=== PATIENT | female | born 1935 | race American Indian/Alaskan Native ===

== ENCOUNTER 2017-06-23 12:32 | Outpatient (CLI) | payer MEDICARE ==
--- NOTE | 2017-06-23 15:02 | Cat Scan Report ---
CT UPPER EXTREMITY LEFT WITHOUT CONTRAST History: Closed fracture of distal radius. Technique: Helical CT with sagittal and coronal reformatted images. Findings: No comparison exam at this facility. The images are limited secondary to poor patient positioning. The patient was uncooperative. A cast has been applied to the right forearm. There is a comminuted, nondisplaced fracture of the distal radius which extends to the radiocarpal joint. There is no evidence for calcified callous. The distal ulna, carpal bones and visualized metacarpals are intact. 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 No bony erosions. There is diffuse soft tissue swelling. Impression: Comminuted distal radial fracture with intra-articular extension at the radiocarpal joint as outlined above.
== END 2017-06-23 12:33 | disposition home or self-care (01) ==
LOC: CT 12:32
DX: S52.502D Unspecified fracture of the lower end of left radius, subsequent encounter for closed fracture with routine healing (principal); M19.032 Primary osteoarthritis, left wrist; I10 Essential (primary) hypertension; E78.00 Pure hypercholesterolemia, unspecified; J18.9 Pneumonia, unspecified organism; Z87.891 Personal history of nicotine dependence; X58.XXXD Exposure to other specified factors, subsequent encounter

== ENCOUNTER 2019-01-10 21:35 | Emergency (ER) | payer MEDICARE ==
--- NOTE | 2019-01-10 21:37 | Emergency Department Report ---
Stated Complaint: ABD PAIN RIGHT SIDE Time Seen by Provider: 01/10/19 21:36 - HPI History of Present Illness: r sided abd pain no n/v/d hx k stones denies dysuria denies abd pain bp inc with pain labs/xray and urine ordered MSE to main ER MSE screening note: Focused history and physical exam performed. Due to findings the following was ordered: ED Disposition for MSE Condition: Stable
[2019-01-10 22:36] LABS: Basophils % (Auto) 0.3 % (0.0-1.8); Eosinophils # (Auto) 0.1 K/mm3 (0.0-0.4); Eosinophils % (Auto) 1.4 % (0.0-4.3); Hematocrit 42.7 % (30.3-42.9); Hemoglobin 13.6 gm/dl (10.1-14.3); Lymphocytes % (Auto) 30.9 % (13.4-35.0); Mean Corpuscular HGB Conc 32 % (30-34); Mean Corpuscular Volume 87 fl (79-97); Monocytes # (Auto) 0.7 K/mm3 (0.0-0.8); Monocytes % (Auto) 11.1 % (0.0-7.3); Platelet Count 138 K/mm3 (140-440); Red Blood Count 4.94 M/mm3 (3.65-5.03); Red Cell Distribution Width 15.2 % (13.2-15.2)
--- NOTE | 2019-01-10 22:45 | XRay Report ---
PROCEDURE: XR ABD SERIES W CXR 1V TECHNIQUE: Abdominal series complete, including supine and upright AP views of the abdomen and front al chest. HISTORY: abd pain COMPARISONS: None . FINDINGS: Heart: Heart size slightly pronounced. Mediastinum/Vessels: Normal. Lungs/Pleural space: Mild atelectasis bilateral lower lungs. No effusion or pneumothorax. Bowel gas pattern: Nonobstructive bowel gas pattern. Moderate fecal debris throughout the colon, con stipation is possible . Masses or calcifications: There is a 8 mm calcification overlying the left renal silhouette, calcifi cation the kidney is suspected. . Bony structures: No acute osseous abnormality . Other: No free intraperitoneal air . IMPRESSION: Nonobstructive bowel gas pattern. Moderate fecal debris in the colon may represent const ipation. Left renal calculi. Bilateral lower lung atelectasis.. This document is electronically signed by Lola Elder DO., January 10 2019 10:42:30 PM ET
[2019-01-10 22:51] LABS: Alanine Aminotransferase 7 units/L (7-56); Albumin 3.8 g/dL (3.9-5); BUN/Creatinine Ratio 13; Blood Urea Nitrogen 18 mg/dL (7-17); Calcium 8.8 mg/dL (8.4-10.2); Hemolysis Index 8
[2019-01-10 22:52] LABS: Bilirubin,Direct < 0.2 mg/dL (0-0.2)
[2019-01-10] MEDS ORDERED: ZOFRAN IV ONE (22:56)
[2019-01-10] MEDS ORDERED: NACL 0.9% 500 ML 500 ML IV ONE (22:56)
[2019-01-10] MEDS ORDERED: MORPHINE IV ONE (22:57)
--- NOTE | 2019-01-10 23:00 | Emergency Department Report ---
ED Abdominal Pain HPI - General Chief Complaint: Abdominal Pain Stated Complaint: ABD PAIN RIGHT SIDE Time Seen by Provider: 01/10/19 21:36 Source: patient Mode of arrival: Ambulatory Limitations: No Limitations - History of Present Illness Initial Comments: Mrs. Vu is a very pleasant 83-year-old female with history of hypertension, kidney stones, dyslipidemia, atrial fibrillation, glaucoma, who presents with right lower quadrant and right upper quadrant pain radiating to the groin. Pain began suddenly this evening. For dinner she ate barbecue chicken and macaroni and cheese. She denies fever. She denies vomiting. Pain was initially severe. Pain is only mild at this time. Past surgical history includes hysterectomy [address] Lesa BONILLA Complaint: abdominal pain -: Sudden, This evening Location: RUQ, RLQ Radiation: other (right groin) Severity: mild, severe Severity scale (0 -10): 0 Quality: sharp, dull Consistency: constant Improves With: nothing Worsens With: nothing Associated Symptoms: denies other symptoms - Related Data Previous Rx's Medication Instructions Recorded Last Taken Type Amiodarone [Cordarone 200 MG TAB] 200 mg PO DAILY #30 tablet 07/16/16 Unknown Rx Carvedilol [Coreg] 6.25 mg PO BID #60 tablet 07/16/16 Unknown Rx Ecotrin 81 mg PO QHS #30 07/16/16 Unknown Rx Lisinopril/Hydrochlorothiazide 1 tab PO DAILY #30 07/16/16 Unknown Rx Omeprazole 40 mg PO DAILY #30 capsule. 07/16/16 Unknown Rx Potassium Chloride [K-Dur] 20 meq PO QDAY #7 tablet 07/16/16 Unknown Rx Simvastatin (Nf) [Zocor TAB] 20 mg PO DAILY #30 tablet 07/16/16 Unknown Rx Allergies Allergy/AdvReac Type Severity Reaction Status Date / Time Penicillins Allergy Unknown Verified 10/10/13 06:05 warfarin [From Coumadin] Allergy Unknown Verified 01/10/19 21:45 ED Review of Systems ROS: Stated complaint: ABD PAIN RIGHT SIDE Other details as noted in HPI Comment: All other systems reviewed and negative Constitutional: denies: fever, malaise Respiratory: denies: cough Cardiovascular: denies: chest pain ED Past Medical Hx - Past Medical History Previous Medical History?: Yes Hx Hypertension: Yes Hx Heart Attack/AMI: No Hx Congestive Heart Failure: No Hx Deep Vein Thrombosis: No Hx Pulmonary Embolism: No Hx Renal Disease: No Hx Sickle Cell Disease: No Hx Kidney Stones: Yes Hx Asthma: No Hx COPD: No Hx Tuberculosis: No Hx HIV: No Additional medical history: high cholesterol, glaucoma. A-fib - Surgical History Past Surgical History?: No Hx Coronary Stent: No Hx Open Heart Surgery: No Hx Pacemaker: No Hx Internal Defibrillator: No Hx Cholecystectomy: No Hx Appendectomy: No Hx Breast Surgery: No - Social History Smoking Status: Never Smoker Substance Use Type: None - Medications Home Medications: Home Medications Medication Instructions Recorded Confirmed Last Taken Type Amiodarone [Cordarone 200 MG TAB] 200 mg PO DAILY #30 tablet 07/16/16 Unknown Rx Carvedilol [Coreg] 6.25 mg PO BID #60 tablet 07/16/16 Unknown Rx Ecotrin 81 mg PO QHS #30 07/16/16 Unknown Rx Lisinopril/Hydrochlorothiazide 1 tab PO DAILY #30 07/16/16 Unknown Rx Omeprazole 40 mg PO DAILY #30 capsule.dr 07/16/16 Unknown Rx Potassium Chloride [K-Dur] 20 meq PO QDAY #7 tablet 07/16/16 Unknown Rx Simvastatin (Nf) [Zocor TAB] 20 mg PO DAILY #30 tablet 07/16/16 Unknown Rx ED Physical Exam - General Limitations: No Limitations General appearance: alert, in no apparent distress - Head Head exam: Present: atraumatic, normocephalic - Eye Eye exam: Present: normal appearance - ENT ENT exam: Present: mucous membranes moist - Neck Neck exam: Present: normal inspection, full ROM. Absent: tenderness, meningismus - Respiratory Respiratory exam: Present: normal lung sounds bilaterally. Absent: respiratory distress, wheezes, rales, rhonchi - Cardiovascular Cardiovascular Exam: Present: regular rate, normal rhythm, normal heart sounds. Absent: bradycardia, tachycardia, systolic murmur, diastolic murmur, rubs, gallop - GI/Abdominal GI/Abdominal exam: Present: soft, normal bowel sounds. Absent: distended, tenderness, guarding, rebound - Extremities Exam Extremities exam: Present: normal inspection - Back Exam Back exam: Present: normal inspection - Neurological Exam Neurological exam: Present: alert, oriented X3 - Psychiatric Psychiatric exam: Present: normal affect, normal mood - Skin Skin exam: Present: warm, dry, intact, normal color. Absent: rash ED Course Vital Signs 01/10/19 01/10/19 01/10/19 21:39 21:42 23:32 Temperature 98.2 F 98.2 F Pulse Rate 69 67 68 Respiratory 18 18 24 Rate Blood Pressure 173/86 173/86 O2 Sat by Pulse 94 99 97 Oximetry 01/11/19 01/11/19 01/11/19 00:00 01:00 01:16 Temperature Pulse Rate 67 68 69 Respiratory 11 L 17 23 Rate Blood Pressure 137/84 137/84 137/84 O2 Sat by Pulse 92 95 93 Oximetry 01/11/19 01/11/19 01/11/19 02:54 03:00 03:16 Temperature Pulse Rate 67 68 69 Respiratory 16 19 15 Rate Blood Pressure 134/65 134/65 O2 Sat by Pulse 94 93 Oximetry ED Medical Decision Making - Lab Data Result diagrams: 01/10/19 22:23 01/10/19 22:23 Laboratory Results - last 24 hr 01/10/19 01/10/19 01/10/19 22:23 22:23 23:20 WBC 6.3 RBC 4.94 Hgb 13.6 Hct 42.7 MCV 87 MCH 28 MCHC 32 RDW 15.2 Plt Count 138 L Lymph % (Auto) 30.9 [place] % (Auto) 11.1 H Eos % (Auto) 1.4 Baso % (Auto) 0.3 Lymph # 2.0 [place] # 0.7 Eos # 0.1 Baso # 0.0 Seg Neutrophils % 56.3 Seg Neutrophils # 3.6 Sodium 147 H Potassium 3.8 Chloride 105.3 Carbon Dioxide 32 H Anion Gap 14 BUN 18 H Creatinine 1.4 H Estimated GFR 43 BUN/Creatinine Ratio 13 Glucose 73 Calcium 8.8 Total Bilirubin 0.50 Direct Bilirubin < 0.2 Indirect Bilirubin 0.3 AST 15 ALT 7 Alkaline Phosphatase 45 Total Protein 6.2 L Albumin 3.8 L Albumin/Globulin Ratio 1.6 Lipase 15 Urine Color Yellow Urine Turbidity Clear Urine pH 6.0 Ur Specific [place] 1.020 Urine Protein <15 mg/dl Urine Glucose (UA) Neg Urine Ketones Neg Urine Blood Neg Urine Nitrite Neg Urine Bilirubin Neg Urine Urobilinogen 4.0 Ur Leukocyte Esterase Neg Urine WBC (Auto) 1.0 Urine RBC (Auto) 2.0 U Epithel Cells (Auto) < 1.0 Urine Bacteria (Auto) 1+ Urine Mucus Few - Radiology Data Radiology results: report reviewed CT abdomen and pelvis positive for cholelithiasis - Medical Decision Making Ms. Vu presents with right-sided abdominal pain caused by cholelithiasis, biliary colic. She desired to be discharged home after I offered admission for pain control. She has 90 tablets of Percocet 7.5 /25 and to address arthritis pain. She prefers to take ibuprofen 4-7 pain. I encouraged her to use Percocet for abdominal pain. She will return for fever or vomiting worsening symptoms. She'll follow with her PCP Dr. Arevalo. Critical care attestation.: If time is entered above; I have spent that time in minutes in the direct care of this critically ill patient, excluding procedure time. ED Disposition Clinical Impression: Acute abdominal pain, Biliary colic Disposition: TO HOME OR SELFCARE Is pt being admited?: No Does the pt Need Aspirin: No Condition: Stable Instructions: Abdominal Pain (ED), Biliary Colic (ED) Referrals: BASHIR AREVALO MD [Staff Physician] - 3-5 Days
[2019-01-11 00:19] LABS: Color,Urine Yellow (Yellow)
[2019-01-11 00:20] LABS: Bacteria,Urine 1+ /HPF (Negative); Bilirubin,Urine NEG (Negative); Blood,Urine NEG (Negative); Mucus,Urine FEW /HPF; Protein,Urine <15 mg/dL mg/dL (Negative)
--- NOTE | 2019-01-11 02:23 | Cat Scan Report ---
PROCEDURE: CT ABDOMEN PELVIS W CON TECHNIQUE: Computerized axial tomography of the abdomen and pelvis was performed after the IV inject ion of iodinated nonionic contrast. CT DOSE LENGTH PRODUCT: 4762 mGycm HISTORY: RUQ RLQ pain COMPARISONS: None . FINDINGS: Visualized lower thorax: The heart size is enlarged. Bilateral lower lung atelectasis.. Liver: Normal size and attenuation. Spleen: Normal size and attenuation. Gallbladder and biliary system: There are stones identified within the gallbladder. The gallbladder l umen is distended.. Pancreas: Normal. Adrenals: There is a 5 mm area of mixed attenuation on the left adrenal gland, adenoma is suspected. Kidneys: Both kidneys have normal size. No hydronephrosis. There are numerous large cysts identified off of the renal cortex. The largest on the left posteriorly measures 6 cm. The largest on the right laterally and measures 3.5 cm.. GI tract: The stomach is normal. The small bowel has normal caliber. No obstruction is seen. The cec um, appendix region and colon are normal. . Lymph nodes and mesentery: Normal. Vasculature: Normal.. Bladder: Normal. Reproductive organs: No pelvic masses. Peritoneum: No free fluid. Musculoskeletal structures: Moderate degenerative changes of the spine. Other: None . IMPRESSION: There is no evidence of intestinal or urinary tract obstruction. No ileus or enteritis. Cholelithiasis. No dilatation of the biliary ductal system. Further evaluation with ultrasound and/or HIDA scan may be of benefit. Bilateral lower lung atelectasis. Moderate cardiomegaly. Multiple bilateral renal cortical cysts. . This document is electronically signed by Lola Elder DO., January 11 2019 02:21:09 AM ET
[2019-01-11] MEDS ORDERED: ZOFRAN IV ONE (02:44)
[2019-01-11] MEDS ORDERED: MORPHINE IV ONE (02:44)
[2019-01-11 03:42] VITALS: BP 112/63
== END 2019-01-11 03:41 | disposition home or self-care (01) ==
LOC: ED 21:35
DX: K80.50 Calculus of bile duct without cholangitis or cholecystitis without obstruction (principal); I10 Essential (primary) hypertension; E78.00 Pure hypercholesterolemia, unspecified; I48.91 Unspecified atrial fibrillation; Z88.0 Allergy status to penicillin; Z88.8 Allergy status to other drugs, medicaments and biological substances; Z90.710 Acquired absence of both cervix and uterus
CPT/HCPCS: 36415; 74022; 74177; 80048; 80076; 81001; 83690; 85025; 96374; 96375; 96376; 99284; J2270; J2405; J7040; Q9967

== ENCOUNTER 2019-03-26 17:52 | Inpatient (IN) | payer MEDICARE ==
--- NOTE | 2019-03-26 18:04 | Event Note ---
ED Screening Note ED Screening Note: here with inc bp today has had a large work up this month echo ef 66 pt cant tell me meds bp slightly elevated no salazar now This initial assessment/diagnostic orders/clinical plan/treatment(s) is/are subject to change based on patients health status, clinical progression and re- assessment by fellow clinical providers in the ED. Further treatment and workup at subsequent clinical providers discretion. Patient/guardian urged not to elope from the ED as their condition may be serious if not clinically assessed and managed. Initial orders include: labs 12 lead
[2019-03-26 18:18] LABS: Basophils % (Auto) 0.6 % (0.0-1.8); Eosinophils # (Auto) 0.1 K/mm3 (0.0-0.4); Eosinophils % (Auto) 1.7 % (0.0-4.3); Hematocrit 42.5 % (30.3-42.9); Hemoglobin 13.6 gm/dl (10.1-14.3); Lymphocytes % (Auto) 38.7 % (13.4-35.0); Mean Corpuscular HGB Conc 32 % (30-34); Mean Corpuscular Volume 85 fl (79-97); Monocytes # (Auto) 0.6 K/mm3 (0.0-0.8); Monocytes % (Auto) 11.4 % (0.0-7.3); Platelet Count 136 K/mm3 (140-440); Red Blood Count 4.97 M/mm3 (3.65-5.03); Red Cell Distribution Width 15.3 % (13.2-15.2)
[2019-03-26 18:47] LABS: Albumin 3.6 g/dL (3.9-5); Calcium 8.8 mg/dL (8.4-10.2)
[2019-03-26] MEDS ORDERED: DIOVAN PO ONE (21:01)
--- NOTE | 2019-03-26 21:29 | Emergency Department Report ---
ED Shortness of Breath HPI - General Chief Complaint: High BP Stated Complaint: CONGESTIVE HEART FAILURE Time Seen by Provider: 03/26/19 17:59 Source: patient, old records reviewed Mode of arrival: Ambulatory Limitations: No Limitations - History of Present Illness Initial Comments: 83-year-old female with past medical history hypertension, atrial fibrillation status post ablation, high cholesterol, and a conduction system disease presents to the hospital with complaints of shortness of evidence blood pressure. Patient was at her physical therapy appointment when she developed shortness of breath while walking. Her blood pressure was elevated when it is 98 and only reduced to 158/90 prior to arrival so they brought her to the hospital for evaluation. Patient is here with her daughter who is visiting from [place] and does not know the patient's baseline physical/medical status. Patient states she does not know her baseline blood pressure. She also states that she has chronic intermittent shortness of breath with poor exercise tolerance. He denies any pain and states that she feels similar to her baseline. Initial pressure in the ED was elevated with a reduced spontaneously without treatment. Patient is overdue for her 7 PM medication which includes her second dose of Valsartan 160 mg. 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 There is no evidence of high degree block and patient had both her Coreg and amiodarone discontinued prior to discharge. Echo also performed at that time with EF of 55-60%. Patient went to urgent care today who was not familiar with the patient and recommended that patient come to the ER for evaluation. Patient does have a primary care doctor Dr. Mcfadden and appointment coordinator Dr. Quintin Curtis. Patient states he is compliant with all her medications. Patient uses a walker at her baseline. - Related Data Home Medications Medication Instructions Recorded Confirmed Last Taken Lasix TAB 40 mg PO DAILY 03/03/19 03/26/19 03/26/19 Myrbetriq 25 mg PO DAILY 03/03/19 03/26/19 03/26/19 Potassium Chloride [K-Dur] 8 meq PO QDAY 03/03/19 03/26/19 03/26/19 Ursodiol 250 mg PO TID 03/03/19 03/26/19 03/26/19 Valsartan 160 mg PO BID 03/03/19 03/26/19 03/26/19 160 Ibuprofen 800 mg PO Q6HR PRN 03/04/19 03/26/19 03/26/19 Previous Rx's Medication Instructions Recorded Last Taken Type Ecotrin 81 mg PO QHS #30 07/16/16 03/26/19 Rx Omeprazole 40 mg PO DAILY #30 capsule. 07/16/16 03/26/19 Rx Simvastatin (Nf) [Zocor TAB] 20 mg PO DAILY #30 tablet 07/16/16 03/26/19 Rx Allergies Allergy/AdvReac Type Severity Reaction Status Date / Time Penicillins Allergy Unknown Verified 03/26/19 18:01 warfarin [From Coumadin] Allergy Unknown Verified 03/26/19 18:01 ED Review of Systems ROS: Stated complaint: CONGESTIVE HEART FAILURE Other details as noted in HPI Comment: All other systems reviewed and negative ED Past Medical Hx - Past Medical History Previous Medical History?: Yes Hx Hypertension: Yes Hx Heart Attack/AMI: No Hx Congestive Heart Failure: No Hx Deep Vein Thrombosis: No Hx Pulmonary Embolism: No Hx Renal Disease: No Hx Sickle Cell Disease: No Hx Kidney Stones: Yes Hx Asthma: No Hx COPD: No Hx Tuberculosis: No Hx HIV: No Additional medical history: high cholesterol, glaucoma. A-fib - Surgical History Past Surgical History?: No Hx Coronary Stent: No Hx Open Heart Surgery: No Hx Pacemaker: No Hx Internal Defibrillator: No Hx Cholecystectomy: No Hx Appendectomy: No Hx Breast Surgery: No - Social History Smoking Status: Never Smoker Substance Use Type: None - Medications Home Medications: Home Medications Medication Instructions Recorded Confirmed Last Taken Type Ecotrin 81 mg PO QHS #30 07/16/16 03/26/19 03/26/19 Rx Omeprazole 40 mg PO DAILY #30 capsule. 07/16/16 03/26/19 03/26/19 Rx Simvastatin (Nf) [Zocor TAB] 20 mg PO DAILY #30 tablet 07/16/16 03/26/19 03/26/19 Rx Lasix TAB 40 mg PO DAILY 03/03/19 03/26/19 03/26/19 History Myrbetriq 25 mg PO DAILY 03/03/19 03/26/19 03/26/19 History Potassium Chloride [K-Dur] 8 meq PO QDAY 03/03/19 03/26/1903/26/19 History Ursodiol 250 mg PO TID 03/03/19 03/26/19 03/26/19 History Valsartan 160 mg PO BID 03/03/19 03/26/19 03/26/19 History 160 Ibuprofen 800 mg PO Q6HR PRN 03/04/19 03/26/19 03/26/19 History ED Physical Exam - General Limitations: No Limitations - Other Other exam information: General: No limitations, patient is alert in no acute distress Head exam: Atraumatic, normocephalic Eyes exam: Normal appearance ENT: Moist mucous membrane Neck exam: Normal inspection, full range of motion, no meningismus nontender Respiratory exam: Clear to auscultation bilateral, no wheezes, rales, crackles Cardiovascular: Normal rate and rhythm, normal heart sounds Abdomen: Soft, nondistended, and nontender, with normal bowel sounds, no rebound, or guarding Extremity: Full range of motion, lower extremity edema or tenderness or asymmetry Back: Normal Inspection, full range of motion, no tenderness Neurologic: Alert, oriented x3, cranial nerves intact, no motor or sensory deficit Psychiatric: normal affect, normal mood Skin: Warm, dry, intact ED Course Vital Signs 03/26/19 03/26/19 03/26/19 17:58 21:00 21:20 Temperature 97.9 F 98.6 F Pulse Rate 83 66 Respiratory 16 20 Rate Blood Pressure 203/93 Blood Pressure 155/100 [Right] O2 Sat by Pulse 97 100 99 Oximetry 03/26/19 03/27/19 22:23 00:23 Temperature 98.1 F Pulse Rate 72 71 Respiratory 16 16 Rate Blood Pressure Blood Pressure 160/98 155/91 [Right] O2 Sat by Pulse 97 99 Oximetry - Consultations Consultation #1: 03/26/19 22:29 case and EKG discussed with Dr Haynes. Rec admission and workup. ED Medical Decision Making - Lab Data Result diagrams: 03/26/19 18:06 03/26/19 18:06 - EKG Data -: EKG Interpreted by Ma EKG shows normal: sinus rhythm, axis (qrs -77), intervals (1st degree av block, RBBB), QRS complexes (qrsd 166), ST-T waves (no stemi) - EKG Data When compared to previous EKG there are: no significant change - Radiology Data Radiology results: report reviewed PROCEDURE: XR CHEST ROUTINE 2V TECHNIQUE: PA and lateral chest radiographs were obtained. HISTORY: sob COMPARISONS: Comparison is made 06/15/2019. FINDINGS: Heart: Cardiac silhouette is moderately enlarged Mediastinum/Vessels: Normal. Lungs/Pleural space: Normal. Bony thorax: No acute osseous abnormality. IMPRESSION: Cardiomegaly No acute pulmonary findings - Medical Decision Making ekg unchanged from previous, no stemi at this time. Discussed the cardiology pt is asymptomatic in the ED with no current symptoms at rest Patient will be admitted to the hospital for further workup and evaluated. No previous stress test on record for review Valsartan initially ordered but discontinued the patient may take her own medication tx with asa in ed - Differential Diagnosis CHF, unstable angina, hypertensive emergency, pulmonary embolus Critical Care Time: No Critical care attestation.: If time is entered above; I have spent that time in minutes in the direct care of this critically ill patient, excluding procedure time. ED Disposition Clinical Impression: Renal insufficiency, BISHOP (dyspnea on exertion), Uncontrolled hypertension, Elevated troponin Disposition: OP ADMIT IP TO THIS HOSP Is pt being admited?: Yes Condition: Stable Time of Disposition: 22:34
[2019-03-26] MEDS ORDERED: ASPIRIN PO ONE (22:20)
--- NOTE | 2019-03-26 22:31 | XRay Report ---
PROCEDURE: XR CHEST ROUTINE 2V TECHNIQUE: PA and lateral chest radiographs were obtained. HISTORY: sob COMPARISONS: Comparison is made 06/15/2019. FINDINGS: Heart: Cardiac silhouette is moderately enlarged Mediastinum/Vessels: Normal. Lungs/Pleural space: Normal. Bony thorax: No acute osseous abnormality. IMPRESSION: Cardiomegaly No acute pulmonary findings This document is electronically signed by Rafael Giles MD., Mar 26 2019 11:29:15 PM ET
[2019-03-26 23:00] LABS: Chol/HDL Ratio 1.98 %
[2019-03-26] MEDS ORDERED: BABY ASPIRIN ONE (23:19)
[2019-03-26] MEDS ORDERED: MORPHINE IV PRN (23:25)
[2019-03-26] MEDS ORDERED: DULCOLAX PR PRN (23:25)
[2019-03-26] MEDS ORDERED: TYLENOL PO PRN (23:25)
[2019-03-26] MEDS ORDERED: SODIUM CHLORIDE FLUSH SYRINGE 10 ML IV PRN (23:25)
[2019-03-26] MEDS ORDERED: ZOFRAN IV PRN (23:25)
[2019-03-26] MEDS ORDERED: AMBIEN PO PRN (23:25)
[2019-03-26] MEDS ORDERED: PERCOCET 5/325 PO PRN (23:25)
--- NOTE | 2019-03-26 23:36 | History and Physical Report ---
History of Present Illness Date of examination: 03/26/19 Chief complaint: Elevated blood pressure History of present illness: Patient is a 83-year-old -[place] female with history of hypertension and atrial fib who presented to the ED on account of elevated blood pressure. History was obtained from both the patient and the daughter who was at the bedside. They stated that's patient's blood pressure was noted to be elevated at 186/99 an hour after she completed a physical therapy session. She reported some shortness of breath and headaches. In the ED she stated that she had a slight right-sided chest pain. She has history of chronic bilateral leg swelling. She denies palpitation, diaphoresis, fever, chills, cough, orthopnea or PND. No nausea, vomiting, dizziness, syncope or loss of consciousness. Past History Past Medical History: atrial fib (status post ablation), hypertension, hyperlipidemia, renal failure, other (kidney stones, conduction system disease, glaucoma, overactive bladder) Past Surgical History: Other (ablation) Social history: no significant social history (she denies current tobacco, alcohol or illicit drug use) Family history: other (no known family history of heart attack or heart disease) Medications and Allergies Allergies Allergy/AdvReac Type Severity Reaction Status Date / Time Penicillins Allergy Unknown Verified 03/26/19 18:01 warfarin [From Coumadin] Allergy Unknown Verified 03/26/19 18:01 Home Medications Medication Instructions Recorded Confirmed Last Taken Type Ecotrin 81 mg PO QHS #30 07/16/16 03/26/19 03/26/19 Rx Omeprazole 40 mg PO DAILY #30 capsule. 07/16/16 03/26/19 03/26/19 Rx Simvastatin (Nf) [Zocor TAB] 20 mg PO DAILY #30 tablet 07/16/16 03/26/19 03/26/19 Rx Lasix TAB 40 mg PO DAILY 03/03/19 03/26/19 03/26/19 History Myrbetriq 25 mg PO DAILY 03/03/19 03/26/19 03/26/19 History Potassium Chloride [K-Dur] 8 meq PO QDAY 03/03/19 03/26/19 03/26/19 History Ursodiol 250 mg PO TID 03/03/19 03/26/19 03/26/19 History Valsartan 160 mg PO BID 03/03/19 03/26/1903/26/19 History 160 Ibuprofen 800 mg PO Q6HR PRN 03/04/19 03/26/19 03/26/19 History Active Meds: Active Medications Acetaminophen (Tylenol) 650 mg PO Q4H PRN PRN Reason: Pain MILD(1-3)/Fever >100.5/BOWMAN Amlodipine Besylate (Norvasc) 10 mg PO QDAY [facility] Aspirin (Aspirin) 325 mg PO QDAY [facility] Atorvastatin Calcium (Lipitor) 80 mg PO QHS [facility] Bisacodyl (Dulcolax) 10 mg [place] QDAY PRN PRN Reason: Constipation unrelieved by MOM Carvedilol (Coreg) 25 mg PO BID [facility] Docusate Sodium (Colace) 100 mg PO BID [facility] Famotidine (Pepcid) 10 mg PO BID [facility] Heparin Sodium (Porcine) (Heparin) 5,000 unit SUB-Q Q12HR [facility] Morphine Sulfate (Morphine) 2 mg IV Q4H PRN PRN Reason: Pain , Severe (7-10) Ondansetron HCl (Zofran) 4 mg IV Q8H PRN PRN Reason: Nausea And Vomiting Oxycodone/Acetaminophen (Percocet 5/325) 1 tab PO Q6H PRN PRN Reason: Pain, Moderate (4-6) Sodium Chloride (Sodium Chloride Flush Syringe 10 Ml) 10 ml IV BID BHAKTI Sodium Chloride (Sodium Chloride Flush Syringe 10 Ml) 10 ml IV PRN PRN PRN Reason: LINE FLUSH Zolpidem Tartrate (Ambien) 5 mg PO QHS PRN PRN Reason: Insomnia Review of Systems All systems: negative (except as documented in the HPI, 14 point system reviewed were negative) Exam - Constitutional Vitals: Temp Pulse Resp BP Pulse Ox 98.6 F 72 16 160/98 97 03/26/19 21:00 03/26/19 22:23 03/26/19 22:23 03/26/19 22:23 03/26/19 22:23 General appearance: Present: no acute distress, obese - EENT Eyes: Present: PERRL, EOM intact ENT: hearing intact, clear oral mucosa - Neck Neck: Present: supple - Respiratory Respiratory effort: normal Respiratory: bilateral: CTA - Cardiovascular Rhythm: regular Heart Sounds: Present: S1 & S2 - Extremities Extremity abnormal: edema (in bilateral lower extremities) - Abdominal General gastrointestinal: Present: soft, non-tender, normal bowel sounds Female genitourinary: Present: deferred - Integumentary Integumentary: Present: clear, warm, dry - Musculoskeletal Musculoskeletal: other (bilateral lower extremity weakness) - Psychiatric Psychiatric: appropriate mood/affect, intact judgment & insight - Neurologic Neurologic: moves all extremities Results - Labs CBC & Chem 7: 03/26/19 18:06 03/26/19 18:06 Labs: Laboratory Last Values WBC 5.1 K/mm3 (4.5-11.0) 03/26/19 18:06 RBC 4.97 M/mm3 (3.65-5.03) 03/26/19 18:06 Hgb 13.6 gm/dl (10.1-14.3) 03/26/19 18:06 Hct 42.5 % (30.3-42.9) 03/26/19 18:06 MCV 85 fl (79-97) 03/26/19 18:06 MCH 27 pg (28-32) L 03/26/19 18:06 MCHC 32 % (30-34) 03/26/19 18:06 RDW 15.3 % (13.2-15.2) H 03/26/19 18:06 Plt Count 136 K/mm3 (140-440) L 03/26/19 18:06 Lymph % (Auto) 38.7 % (13.4-35.0) H 03/26/19 18:06 [place] % (Auto) 11.4 % (0.0-7.3) H 03/26/19 18:06 Eos % (Auto) 1.7 % (0.0-4.3) 03/26/19 18:06 Baso % (Auto) 0.6 % (0.0-1.8) 03/26/19 18:06 Lymph # 2.0 K/mm3 (1.2-5.4) 03/26/19 18:06 [place] # 0.6 K/mm3 (0.0-0.8) 03/26/19 18:06 Eos # 0.1 K/mm3 (0.0-0.4) 03/26/19 18:06 Baso # 0.0 K/mm3 (0.0-0.1) 03/26/19 18:06 Seg Neutrophils % 47.6 % (40.0-70.0) 03/26/19 18:06 Seg Neutrophils # 2.4 K/mm3 (1.8-7.7) 03/26/19 18:06 Sodium 142 mmol/L (137-145) 03/26/19 18:06 Potassium 4.7 mmol/L (3.6-5.0) 03/26/19 18:06 Chloride 105.1 mmol/L (98-107) 03/26/19 18:06 Carbon Dioxide 25 mmol/L (22-30) 03/26/19 18:06 17 mmol/L 03/26/19 18:06 BUN 18 mg/dL (7-17) H 03/26/19 18:06 1.3 mg/dL (0.7-1.2) H 03/26/19 18:06 Estimated GFR 47 ml/min 03/26/19 18:06 14 % 03/26/19 18:06 Glucose 96 mg/dL (65-100) 03/26/19 18:06 Calcium 8.8 mg/dL (8.4-10.2) 03/26/19 18:06 0.70 mg/dL (0.1-1.2) 03/26/19 18:06 AST 24 units/L (5-40) 03/26/19 18:06 ALT 9 units/L (7-56) 03/26/19 18:06 55 units/L (35-129) 03/26/19 18:06 0.307 ng/mL (0.00-0.029) H* 03/26/19 21:02 6.6 g/dL (6.3-8.2) 03/26/19 18:06 3.6 g/dL (3.9-5) L 03/26/19 18:06 1.2 % 03/26/19 18:06 Triglycerides 49 mg/dL (2-149) 03/26/19 21:02 Cholesterol 101 mg/dL (50-199) 03/26/19 21:02 40 mg/dL (50-130) L 03/26/19 21:02 51 mg/dL (40-59) 03/26/19 21:02 1.98 % 03/26/19 21:02 Assessment and Plan Assessment and plan: Dyspnea with elevated troponin -We'll continue serial troponin level monitoring -On aspirin, statin and Coreg -We'll hold off on anticoagulation for now due to prior history of bleed -Stress test for further evaluation -Cardiology consulted in the ED Hypertensive emergency with SBP of 203 -On antihypertensives, will adjust as needed Chronic kidney disease stage III -Creatinine level is about baseline History of atrial fibrillation status post ablation -Heart rate controlled Hyperlipidemia -On statin Overactive bladder -Home medications resumed DVT prophylaxis with heparin Disposition: For discharge when medically stable Time spent: 38 minutes
[2019-03-26] MEDS ORDERED: COREG PO SCH (23:45)
[2019-03-26 23:46] LABS: INR 0.97 (0.87-1.13); Partial Thromboplastin Time 26.3 Sec. (24.2-36.6)
[2019-03-27] MEDS: NORVASC PO SCH ×2 (00:30→09:17)
[2019-03-27] MEDS: PEPCID PO SCH ×3 (00:30→21:22)
--- NOTE | 2019-03-27 04:41 | Event Note ---
Date: 03/27/19 Code Met was called for possible ST elevation [place]. Nurses brought EKG down to the ER for me to evaluate. Repeat EKG showed worsening bradycardia with a heart rate of 45 and now patient has a second-degree Mob[place] 2 block. This occurred after pt received Coreg. I discussed case with on-call STEMI doctor Dr. Moody who was able to review EKG and agrees that it is not ST elevation [place] at this time. I also then recontacted Dr. Haynes who also reviewed the repeat EKG. Recommends to stop AV arti blockers i.e. calcium and beta blockers. Hospitalist Dr Linn informed of cardiology recommendation.
[2019-03-27] MEDS ORDERED: LEXISCAN IV ONE ×2 (07:57→08:06)
[2019-03-27] MEDS: URSO PO SCH ×3 (09:16→21:22)
[2019-03-27] MEDS: COLACE PO SCH ×2 (09:16→21:22)
[2019-03-27] MEDS: LASIX PO SCH ×2 (09:16→09:22)
[2019-03-27] MEDS: ASPIRIN PO SCH (09:16)
[2019-03-27] MEDS: DIOVAN PO SCH ×2 (09:17→21:23)
[2019-03-27] MEDS: HEPARIN SUB-Q SCH ×2 (09:17→21:22)
[2019-03-27] MEDS: SODIUM CHLORIDE FLUSH SYRINGE 10 ML IV SCH ×2 (09:18→21:23)
[2019-03-27] MEDS ORDERED: K-DUR PO SCH (10:00)
[2019-03-27] MEDS ORDERED: MYRBETRIQ 25 MG PO SCH (10:00)
--- NOTE | 2019-03-27 13:51 | Progress Note ---
Assessment and Plan Hypertensive emergency with SBP of 203 -On antihypertensives Blood pressure control now Chronic kidney disease stage III -Creatinine level is about baseline Creatinine 1.3 History of atrial fibrillation status post ablation -Heart rate controlled Hyperlipidemia -On statin Bradycardia Coreg stopped Overactive bladder -Home medications resumed DVT prophylaxis with heparin Subjective Date of service: 03/27/19 Principal diagnosis: hypertensive emergency and shortness of breath Interval history: Patient admitted for shortness of breath and uncontrolled blood pressure. Patient has a low heart rate this morning ranging between 31 and 48. Patient is otherwise comfortable Objective - Constitutional Vitals: Vital Signs - 12hr 03/27/19 03/27/19 03/27/19 04:28 04:30 05:18 Temperature 97.4 F L Pulse Rate 58 L 56 L 59 L Respiratory 18 20 12 Rate Blood Pressure 151/77 Blood Pressure 151/77 [Right] O2 Sat by Pulse 99 99 Oximetry 03/27/19 03/27/19 03/27/19 05:30 06:00 06:30 Temperature Pulse Rate 57 L 48 L 44 L Respiratory 15 22 20 Rate Blood Pressure 183/92 133/79 129/81 Blood Pressure [Right] O2 Sat by Pulse 97 100 98 Oximetry 03/27/19 03/27/19 03/27/19 07:00 07:30 08:00 Temperature 97.3 F L Pulse Rate 48 L 45 L 48 L Respiratory 14 18 19 Rate Blood Pressure 138/72 130/64 134/67 Blood Pressure [Right] O2 Sat by Pulse 98 99 97 Oximetry 03/27/19 03/27/19 03/27/19 08:26 08:30 09:01 Temperature Pulse Rate 41 L 44 L 43 L Respiratory 16 16 Rate Blood Pressure 113/69 116/62 Blood Pressure [Right] O2 Sat by Pulse 97 97 Oximetry 03/27/19 03/27/19 03/27/19 09:31 10:00 10:31 Temperature Pulse Rate 47 L 44 L 38 L Respiratory 14 13 16 Rate Blood Pressure 132/66 138/60 119/44 Blood Pressure [Right] O2 Sat by Pulse 95 97 95 Oximetry 03/27/19 03/27/19 03/27/19 11:01 11:31 12:00 Temperature 97.5 F L Pulse Rate 40 L 42 L Respiratory 18 16 Rate Blood Pressure 127/57 109/59 Blood Pressure [Right] O2 Sat by Pulse 96 94 Oximetry 03/27/19 03/27/19 12:01 12:47 Temperature Pulse Rate 47 L Respiratory 16 Rate Blood Pressure 133/55 Blood Pressure [Right] O2 Sat by Pulse 95 95 Oximetry General appearance: Present: no acute distress, well-nourished - EENT Eyes: PERRL, EOM intact ENT: hearing intact, clear oral mucosa Ears: bilateral: normal - Neck Neck: supple, normal ROM - Respiratory Respiratory effort: normal Respiratory: bilateral: CTA - Breasts Breasts: normal - Cardiovascular Heart rate: 48 Rhythm: regular Heart Sounds: Present: S1 & S2. Absent: gallop, rub Extremities: pulses intact, No edema, normal color, Full ROM - Gastrointestinal General gastrointestinal: Present: soft, non-tender, non-distended, normal bowel sounds - Genitourinary Female genitourinary: normal - Integumentary Integumentary: clear, warm, dry - Musculoskeletal Musculoskeletal: 1, strength equal bilaterally - Neurologic Neurologic: moves all extremities - Psychiatric Psychiatric: memory intact, appropriate mood/affect, intact judgment & insight - Allied health notes Allied health notes reviewed: nursing, case management - Labs CBC & Chem 7: 03/26/19 18:06 03/26/19 18:06 Labs: Abnormal lab results 03/26/19 03/26/19 03/26/19 Range/Units 18:06 18:06 21:02 MCH 27 L (28-32) pg RDW 15.3 H (13.2-15.2) % Plt Count 136 L (140-440) K/mm3 Lymph % (Auto) 38.7 H (13.4-35.0) % [place] % (Auto) 11.4 H (0.0-7.3) % BUN 18 H (7-17) mg/dL Creatinine 1.3 H (0.7-1.2) mg/dL POC Glucose (70-105) Troponin T 0.307 H* (0.00-0.029) ng/mL NT-Pro-B Natriuret Pep (0-900) pg/mL Albumin 3.6 L (3.9-5) g/dL LDL Cholesterol Direct 40 L (50-130) mg/dL 03/26/19 03/27/19 Range/Units 22:58 04:35 MCH (28-32) pg RDW (13.2-15.2) % Plt Count (140-440) K/mm3 Lymph % (Auto) (13.4-35.0) % [place] % (Auto) (0.0-7.3) % BUN (7-17) mg/dL Creatinine (0.7-1.2) mg/dL POC Glucose 118 H (70-105) Troponin T (0.00-0.029) ng/mL NT-Pro-B Natriuret Pep 1303 H (0-900) pg/mL Albumin (3.9-5) g/dL LDL Cholesterol Direct (50-130) mg/dL
--- NOTE | 2019-03-27 15:13 | Consultation ---
History of Present Illness Consult date: 03/27/19 Consult reason: congestive heart failure, hypertension History of present illness: Impression Acute CHF, EF unknown, suspect HFpEF given uncontrolled HTN. 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 Hold on stress test until hemodynamics stabilized, trop neg x 2. DVT prophylaxis. Past History Past Medical History: atrial fib (status post ablation), hypertension, hyperlipidemia, renal failure, other (kidney stones, conduction system disease, glaucoma, overactive bladder) Past Surgical History: Other (ablation) Social history: no significant social history (she denies current tobacco, alcohol or illicit drug use) Family history: other (no known family history of heart attack or heart disease) Medications and Allergies Allergies Allergy/AdvReac Type Severity Reaction Status Date / Time amiodarone Allergy Unknown Verified 03/27/19 04:48 carvedilol [From Coreg] Allergy Unknown Verified 03/27/19 04:47 Penicillins Allergy Unknown Verified 03/26/19 18:01 warfarin [From Coumadin] Allergy Unknown Verified 03/26/19 18:01 Home Medications Medication Instructions Recorded Confirmed Last Taken Type Ecotrin 81 mg PO QHS #30 07/16/16 03/26/19 03/26/19 Rx Omeprazole 40 mg PO DAILY #30 capsule. 07/16/16 03/26/19 03/26/19 Rx Simvastatin (Nf) [Zocor TAB] 20 mg PO DAILY #30 tablet 07/16/16 03/26/19 03/26/19 Rx Lasix TAB 40 mg PO DAILY 03/03/19 03/26/19 03/26/19 History Myrbetriq 25 mg PO DAILY 03/03/19 03/26/19 03/26/19 History Potassium Chloride [K-Dur] 8 meq PO QDAY 03/03/19 03/26/19 03/26/19 History Ursodiol 250 mg PO TID 03/03/19 03/26/19 03/26/19 History Valsartan 160 mg PO BID 03/03/19 03/26/19 03/26/19 History 160 Ibuprofen 800 mg PO Q6HR PRN 05/07/1503/26/19 03/26/19 History Active Meds: Active Medications Acetaminophen (Tylenol) 650 mg PO Q4H PRN PRN Reason: Pain MILD(1-3)/Fever >100.5/BOWMAN Amlodipine Besylate (Norvasc) 10 mg PO QDAY [facility] Last Admin: 03/27/19 09:17 Dose: Not Given Documented by: Aspirin (Aspirin) 325 mg PO QDAY [facility] Last Admin: 03/27/19 09:16 Dose: 325 mg Documented by: Atorvastatin Calcium (Lipitor) 80 mg PO QHS [facility] Last Admin: 03/27/19 00:29 Dose: Not Given Documented by: Bisacodyl (Dulcolax) 10 mg [place] QDAY PRN PRN Reason: Constipation unrelieved by MOM Docusate Sodium (Colace) 100 mg PO BID [facility] Last Admin: 03/27/19 09:16 Dose: 100 mg Documented by: Famotidine (Pepcid) 10 mg PO BID [facility] Last Admin: 03/27/19 09:16 Dose: 10 mg Documented by: Furosemide (Lasix) 40 mg PO DAILY [facility] Last Admin: 03/27/19 09:22 Dose: Not Given Documented by: Heparin Sodium (Porcine) (Heparin) 5,000 unit SUB-Q Q12HR [facility] Last Admin: 03/27/19 09:17 Dose: 5,000 unit Documented by: Miscellaneous Medication (Myrbetriq) 25 mg PO DAILY [facility] Morphine Sulfate (Morphine) 2 mg IV Q4H PRN PRN Reason: Pain , Severe (7-10) Ondansetron HCl (Zofran) 4 mg IV Q8H PRN PRN Reason: Nausea And Vomiting Oxycodone/Acetaminophen (Percocet 5/325) 1 tab PO Q6H PRN PRN Reason: Pain, Moderate (4-6) Sodium Chloride (Sodium Chloride Flush Syringe 10 Ml) 10 ml IV BID [facility] Last Admin: 03/27/19 09:18 Dose: 10 ml Documented by: Sodium Chloride (Sodium Chloride Flush Syringe 10 Ml) 10 ml IV PRN PRN PRN Reason: LINE FLUSH Ursodiol ([place]) 250 mg PO TID [facility] Last Admin: 03/27/19 13:26 Dose: 250 mg Documented by: Valsartan (Diovan) 160 mg PO BID [facility] Last Admin: 03/27/19 09:17 Dose: Not Given Documented by: Zolpidem Tartrate (Ambien) 5 mg PO QHS PRN PRN Reason: Insomnia Review of Systems All systems: negative (stated in HPI) Physical Examination Vital Signs Temp Pulse Resp BP Pulse Ox 97.9 F 83 16 203/93 97 03/26/19 17:58 03/26/19 17:58 03/26/19 17:58 03/26/19 17:58 03/26/19 17:58 General appearance: no acute distress, obese HEENT: Positive: PERRL Neck: Positive: neck supple Cardiac: Positive: Irregularly Regular Lungs: Positive: Normal Exam Neuro: Positive: Grossly Intact Abdomen: Positive: Unremarkable Results 03/26/19 18:06 03/26/19 18:06 Cardiac Enzymes 03/26/19 Range/Units 18:06 AST 24 (5-40) units/L Coagulation 03/26/19 Range/Units 23:13 PT 13.5 (12.2-14.9) Sec. INR 0.97 (0.87-1.13) APTT 26.3 (24.2-36.6) Sec. Lipids 03/26/19 Range/Units 21:02 Triglycerides 49 (2-149) mg/dL Cholesterol 101 (50-199) mg/dL HDL Cholesterol 51 (40-59) mg/dL Cholesterol/HDL Ratio 1.98 % CBC 03/26/19 Range/Units 18:06 WBC 5.1 (4.5-11.0) K/mm3 RBC 4.97 (3.65-5.03) M/mm3 Hgb 13.6 (10.1-14.3) gm/dl Hct 42.5 (30.3-42.9) % Plt Count 136 L (140-440) K/mm3 Lymph # 2.0 (1.2-5.4) K/mm3 [place] # 0.6 (0.0-0.8) K/mm3 Eos # 0.1 (0.0-0.4) K/mm3 Baso # 0.0 (0.0-0.1) K/mm3 Comprehensive Metabolic Panel 03/26/19 Range/Units 18:06 Sodium 142 (137-145) mmol/L Potassium 4.7 (3.6-5.0) mmol/L Chloride 105.1 (98-107) mmol/L Carbon Dioxide 25 (22-30) mmol/L BUN 18 H (7-17) mg/dL Creatinine 1.3 H (0.7-1.2) mg/dL Glucose 96 (65-100) mg/dL Calcium 8.8 (8.4-10.2) mg/dL AST 24 (5-40) units/L ALT 9 (7-56) units/L Alkaline Phosphatase 55 (35-129) units/L Total Protein 6.6 (6.3-8.2) g/dL Albumin 3.6 L (3.9-5) g/dL
[2019-03-28 05:37] LABS: Basophils % (Auto) 0.3 % (0.0-1.8); Eosinophils # (Auto) 0.1 K/mm3 (0.0-0.4); Eosinophils % (Auto) 2.5 % (0.0-4.3); Hematocrit 38.4 % (30.3-42.9); Hemoglobin 12.5 gm/dl (10.1-14.3); Lymphocytes # (Auto) 1.8 K/mm3 (1.2-5.4); Lymphocytes % (Auto) 40.4 % (13.4-35.0); Mean Corpuscular HGB Conc 33 % (30-34); Mean Corpuscular Volume 86 fl (79-97); Monocytes # (Auto) 0.6 K/mm3 (0.0-0.8); Monocytes % (Auto) 13.1 % (0.0-7.3); Platelet Count 129 K/mm3 (140-440); Red Blood Count 4.47 M/mm3 (3.65-5.03); Red Cell Distribution Width 15.6 % (13.2-15.2)
[2019-03-28 06:14] LABS: Albumin 3.1 g/dL (3.9-5); Calcium 8.7 mg/dL (8.4-10.2)
[2019-03-28] MEDS: URSO PO SCH ×3 (09:20→22:36)
[2019-03-28] MEDS: COLACE PO SCH ×2 (09:56→22:23)
[2019-03-28] MEDS: LASIX PO SCH (09:56)
[2019-03-28] MEDS: PEPCID PO SCH ×2 (09:56→22:43)
[2019-03-28] MEDS: ASPIRIN PO SCH (09:56)
[2019-03-28] MEDS: HEPARIN SUB-Q SCH ×2 (09:57→22:29)
[2019-03-28] MEDS: NORVASC PO SCH (09:57)
[2019-03-28] MEDS: DIOVAN PO SCH ×2 (10:00→22:24)
[2019-03-28] MEDS: SODIUM CHLORIDE FLUSH SYRINGE 10 ML IV SCH ×2 (10:00→22:25)
--- NOTE | 2019-03-28 12:07 | Progress Note ---
Subjective Date of service: 03/28/19 Principal diagnosis: hypertensive emergency and shortness of breath Interval history: follow-up, daughter at bedside, she feels better, no chest pain or orthopnea, BP markedly improved. Impression Acute CHF, EF unknown, suspect HFpEF given uncontrolled HTN. 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 Hold on stress test until hemodynamics stabilized, trop neg x 2. Stress was scheduled in our office as outpt. DVT prophylaxis. Objective Vital Signs Temp Pulse Pulse Pulse Resp BP Pulse Ox 03/28/19 10:31 70 17 128/69 94 03/28/19 10:00 67 19 129/68 93 03/28/19 09:57 68 120/67 03/28/19 09:31 69 15 136/65 93 03/28/19 09:01 63 19 154/85 91 03/28/19 08:31 74 11 L 160/91 92 03/28/19 08:00 97.7 F 67 18 147/88 94 03/28/19 07:31 70 22 142/83 93 03/28/19 07:01 60 21 141/81 93 03/28/19 06:31 60 17 133/77 95 03/28/19 06:00 55 L 16 135/75 96 03/28/19 05:30 65 19 146/71 94 03/28/19 05:00 66 18 142/81 95 03/28/19 04:30 59 L 18 141/70 97 03/28/19 04:00 62 67 20 139/75 95 03/28/19 03:40 98.8 F 03/28/19 03:30 60 20 122/61 94 03/28/19 03:01 65 18 121/57 95 03/28/19 02:31 24 122/63 94 03/28/19 02:01 64 16 103/55 96 03/28/19 01:31 57 L 22 124/57 93 03/28/19 01:00 53 L 15 140/71 92 03/28/19 00:31 60 24 130/82 94 03/28/19 00:09 60 20 141/66 94 06/02/19 00:00 62 22 141/66 93 03/27/19 23:51 14 98 03/27/19 23:49 98.6 F 03/27/19 23:31 74 14 138/114 94 03/27/19 23:00 58 L 20 136/75 96 03/27/19 22:31 50 L 19 137/69 97 03/27/19 22:01 56 L 19 138/74 97 03/27/19 21:31 74 15 140/77 95 03/27/19 21:23 53 L 134/74 03/27/19 21:01 55 L 17 123/71 96 03/27/19 20:31 68 12 141/93 95 03/27/19 20:08 98 03/27/19 20:00 98.8 F 68 14 151/79 94 03/27/19 19:52 63 63 15 98 03/27/19 19:30 60 19 131/70 90 03/27/19 19:01 74 17 142/71 97 03/27/19 18:31 58 L 15 162/89 92 03/27/19 18:00 66 23 123/86 97 03/27/19 17:31 61 19 129/80 98 03/27/19 17:01 68 15 119/76 03/27/19 16:31 50 L 17 134/64 95 03/27/19 16:01 56 L 15 137/80 93 03/27/19 16:00 97.4 F L 51 L 03/27/19 15:31 56 L 18 136/89 93 03/27/19 15:01 62 14 110/70 90 03/27/19 14:31 57 L 16 112/60 95 03/27/19 14:01 72 15 99/44 94 03/27/19 13:30 60 20 113/63 97 03/27/19 13:01 68 19 135/82 95 03/27/19 12:47 95 03/27/19 12:31 68 16 123/97 97 - Physical Examination General: No Apparent Distress HEENT: Positive: PERRL Neck: Positive: neck supple Cardiac: Positive: Irregularly Regular, S1/S2 Lungs: Positive: Normal Exam Neuro: Positive: Grossly Intact Abdomen: Positive: Unremarkable Extremities: Present: normal - Labs and Meds Cardiac Enzymes 03/28/19 Range/Units 04:32 AST 15 (5-40) units/L CBC 03/28/19 Range/Units 04:32 WBC 4.5 (4.5-11.0) K/mm3 RBC 4.47 (3.65-5.03) M/mm3 Hgb 12.5 (10.1-14.3) gm/dl Hct 38.4 (30.3-42.9) % Plt Count 129 L (140-440) K/mm3 Lymph # 1.8 (1.2-5.4) K/mm3 [place] # 0.6 (0.0-0.8) K/mm3 Eos # 0.1 (0.0-0.4) K/mm3 Baso # 0.0 (0.0-0.1) K/mm3 Comprehensive Metabolic Panel 03/28/19 Range/Units 04:32 Sodium 145 (137-145) mmol/L Potassium 3.9 (3.6-5.0) mmol/L Chloride 108.2 H (98-107) mmol/L Carbon Dioxide 27 (22-30) mmol/L BUN 18 H (7-17) mg/dL Creatinine 1.3 H (0.7-1.2) mg/dL Glucose 112 H (65-100) mg/dL Calcium 8.7 (8.4-10.2) mg/dL AST 15 (5-40) units/L ALT 6 L (7-56) units/L Alkaline Phosphatase 48 (35-129) units/L Total Protein 5.7 L (6.3-8.2) g/dL Albumin 3.1 L (3.9-5) g/dL
--- NOTE | 2019-03-28 15:49 | Consultation ---
History of Present Illness Consult date: 03/28/19 Requesting physician: BASHIR AREVALO Reason for consult: other (Sympyomatic Bradycardia) History of present illness: PULMONARY/CCM CONSULT NOTE (Full dictation # [id number]) Please see dictated notes for full details Past History Past Medical History: atrial fib (status post ablation), hypertension, hyperlipidemia, renal failure, other (kidney stones, conduction system disease, glaucoma, overactive bladder) Past Surgical History: Other (ablation) Social history: no significant social history (she denies current tobacco, alcohol or illicit drug use) Family history: other (no known family history of heart attack or heart disease) Medications and Allergies Allergies Allergy/AdvReac Type Severity Reaction Status Date / Time amiodarone Allergy Unknown Verified 03/27/19 04:48 carvedilol [From Coreg] Allergy Unknown Verified 03/27/19 04:47 Penicillins Allergy Unknown Verified 03/26/19 18:01 warfarin [From Coumadin] Allergy Unknown Verified 03/26/19 18:01 Home Medications Medication Instructions Recorded Confirmed Last Taken Type Ecotrin 81 mg PO QHS #30 07/16/16 03/26/19 03/26/19 Rx Omeprazole 40 mg PO DAILY #30 capsule. 07/16/16 03/26/19 03/26/19 Rx Simvastatin (Nf) [Zocor TAB] 20 mg PO DAILY #30 tablet 07/16/16 03/26/19 03/26/19 Rx Lasix TAB 40 mg PO DAILY 03/03/19 03/26/19 03/26/19 History Myrbetriq 25 mg PO DAILY 03/03/19 03/26/19 03/26/19 History Potassium Chloride [K-Dur] 8 meq PO QDAY 03/03/19 03/26/19 03/26/19 History Ursodiol 250 mg PO TID 03/03/19 03/26/19 03/26/19 History Valsartan 160 mg PO BID 03/03/19 03/26/19 03/26/19 History 160 Ibuprofen 800 mg PO Q6HR PRN 03/04/19 03/26/19 03/26/19 History Active Meds: Active Medications Acetaminophen (Tylenol) 650 mg PO Q4H PRN PRN Reason: Pain MILD(1-3)/Fever >100.5/BOWMAN Amlodipine Besylate (Norvasc) 10 mg PO QDAY [facility] Last Admin: 03/28/19 09:57 Dose: 10 mg Documented by: Aspirin (Aspirin) 325 mg PO QDAY [facility] Last Admin: 03/28/19 09:56 Dose: 325 mg Documented by: Atorvastatin Calcium (Lipitor) 80 mg PO QHS [facility] Last Admin: 03/27/19 21:22 Dose: 80 mg Documented by: Bisacodyl (Dulcolax) 10 mg IA QDAY PRN PRN Reason: Constipation unrelieved by MOM Docusate Sodium (Colace) 100 mg PO BID [facility] Last Admin: 03/28/19 09:56 Dose: 100 mg Documented by: Famotidine (Pepcid) 10 mg PO BID [facility] Last Admin: 03/28/19 09:56 Dose: 10 mg Documented by: Furosemide (Lasix) 40 mg PO DAILY [facility] Last Admin: 03/28/19 09:56 Dose: 40 mg Documented by: Heparin Sodium (Porcine) (Heparin) 5,000 unit SUB-Q Q12HR [facility] Last Admin: 03/28/19 09:57 Dose: 5,000 unit Documented by: Miscellaneous Medication (Myrbetriq) 25 mg PO DAILY [facility] Morphine Sulfate (Morphine) 2 mg IV Q4H PRN PRN Reason: Pain , Severe (7-10) Ondansetron HCl (Zofran) 4 mg IV Q8H PRN PRN Reason: Nausea And Vomiting Oxycodone/Acetaminophen (Percocet 5/325) 1 tab PO Q6H PRN PRN Reason: Pain, Moderate (4-6) Sodium Chloride (Sodium Chloride Flush Syringe 10 Ml) 10 ml IV BID [facility] Last Admin: 03/28/19 10:00 Dose: 10 ml Documented by: Sodium Chloride (Sodium Chloride Flush Syringe 10 Ml) 10 ml IV PRN PRN PRN Reason: LINE FLUSH Ursodiol (Liberty) 250 mg PO TID [facility] Last Admin: 03/28/19 13:55 Dose: 250 mg Documented by: Valsartan (Diovan) 160 mg PO BID [facility] Last Admin: 03/28/19 10:00 Dose: 160 mg Documented by: Zolpidem Tartrate (Ambien) 5 mg PO QHS PRN PRN Reason: Insomnia Physical Examination Vital signs: Vital Signs Temp Pulse Resp BP Pulse Ox 97.9 F 83 16 203/93 97 03/26/19 17:58 03/26/19 17:58 03/26/19 17:58 03/26/19 17:58 03/26/19 17:58 Results - Laboratory Findings CBC and BMP: 03/28/19 04:32 03/28/19 04:32 PT/INR, D-dimer PT 13.5 Sec. (12.2-14.9) 03/26/19 23:13 INR 0.97 (0.87-1.13) 03/26/19 23:13 Abnormal lab findings: Abnormal Labs 03/26/19 03/26/19 03/26/19 18:06 18:06 21:02 MCH 27 L RDW 15.3 H Plt Count 136 L Lymph % (Auto) 38.7 H [place] % (Auto) 11.4 H Chloride BUN 18 H Creatinine 1.3 H Glucose POC Glucose ALT Troponin T 0.307 H* NT-Pro-B Natriuret Pep Total Protein Albumin 3.6 L LDL Cholesterol Direct 40 L 03/26/19 03/27/19 03/28/19 22:58 04:35 04:32 MCH RDW 15.6 H Plt Count 129 L Lymph % (Auto) 40.4 H [place] % (Auto) 13.1 H Chloride BUN Creatinine Glucose POC Glucose 118 H ALT Troponin T NT-Pro-B Natriuret Pep 1303 H Total Protein Albumin LDL Cholesterol Direct 03/28/19 04:32 MCH RDW Plt Count Lymph % (Auto) [place] % (Auto) Chloride 108.2 H BUN 18 H Creatinine 1.3 H Glucose 112 H POC Glucose ALT 6 L Troponin T NT-Pro-B Natriuret Pep Total Protein 5.7 L Albumin 3.1 L LDL Cholesterol Direct
--- NOTE | 2019-03-29 06:42 | Consultation ---
PULMONARY/CRITICAL CARE CONSULTATION CONSULTING PHYSICIAN: Angela Mcfadden MD REASON FOR CONSULTATION: Symptomatic bradycardia. CHIEF COMPLAINT AND HISTORY OF PRESENT ILLNESS: The patient is an 83-year-old female with past medical history significant amongst other things for hypertension as well as atrial fibrillation, reportedly status post EP studies and ablation, came into the Emergency Room secondary to elevated blood pressures about 186/99. She complained of some shortness of breath, some headache. In the ED, she complained of right-sided chest pain. She denies any new leg pain or swelling over her baseline. She was evaluated in the ER and essentially admitted with a non-STEMI diagnosis as well as hypertensive emergency. Her blood pressure was controlled on the telemetry floor. It seems that she received her medications amongst others which included her Coreg. Post-Coreg, a code MET was called for possible ST elevation [place]. She was essentially found to be bradycardic, developed a second-degree Mobitz II heart block and transferred into the Intensive Care Unit for symptomatic bradycardia. We are asked to assist with management. When I stopped by to see her, she was doing better. She denied any real symptoms during her bradycardic episodes. She denied nausea, vomiting, chest pain, fevers, chills, any dizziness. With regards to tobacco use/abuse history, she denies current tobacco, alcohol, illicit drug use or abuse. She does have a remote history. Really this is as much of the history of presentation as I have. I should mention she is obese. She admits to snoring, but has never had a sleep study as far as she knows. PAST MEDICAL HISTORY: Again, atrial fibrillation, hypertension, hyperlipidemia, obesity, chronic kidney disease, history of nephrolithiasis, history of glaucoma and overactive bladder. PAST SURGICAL HISTORY: She has had ablation after EP study. MEDICATIONS: She was on at the time I stopped by to see her were reviewed. Pertinent medications included the following: Tylenol 650 mg p.o. q. 4 hours p.r.n. mild pain or fevers, Norvasc 10 mg p.o. daily, aspirin 325 mg p.o. daily, Lipitor 80 mg p.o. at bedtime, Dulcolax p.r.n., Colace 100 mg p.o. b.i.d., Pepcid 10 mg p.o. b.i.d., Lasix 40 mg p.o. daily, heparin 5000 units subcutaneous q. 12, nonformulary medication 25 mg p.o. daily, morphine 2 mg IV q. 4 hours p.r.n. severe pain, Zofran 4 mg IV q. 8 hours p.r.n. nausea and vomiting, Percocet 5/325 mg p.o. q. 6 hours p.r.n. moderate pain, ursodiol 250 mg p.o. t.i.d., Diovan 160 mg p.o. b.i.d. and p.r.n., Ambien 5 mg p.o. at bedtime p.r.n. ALLERGIES: TO AMIODARONE, TO NOW CARVEDILOL, TO PENICILLINS AND TO WARFARIN. Nature of this allergy is unknown. DIET: Obese lady. Denies acute weight loss or gain in the preceding few weeks to months. FAMILY AND SOCIAL HISTORY: Apparently lives in the community prior to this presentation. She denies current alcohol, tobacco, or illicit drug use or abuse. Family history otherwise is noncontributory. REVIEW OF SYSTEMS: No loss of consciousness. No new onset seizures. No new onset focal weakness. She had shortness of breath at presentation. She had the chest pain at presentation. She denies current chest pain or palpitations. No heat or cold intolerance. No polydipsia, no polyuria. She admits to a nonrestorative sleep and snoring. Complete 13-system review of systems obtained. Pertinent positives and/or negatives as in body of history above, otherwise noncontributory. PHYSICAL EXAMINATION: VITAL SIGNS: At presentation and since she has been afebrile, presentation temperature 97.9 degrees Fahrenheit with a pulse of 83, respiratory rate of 16, blood pressure 203/93, O2 sats were 97%, inspired oxygen concentration at the time was not recorded. When I stopped by to see her, she was 95% on 2 liters nasal cannula. GENERAL: She is an elderly looking obese, really morbidly obese female, normocephalic, atraumatic, talking to me in full sentences without overt respiratory distress. HEAD, EYES, EARS, NOSE AND THROAT: She is anicteric. No conjunctival erythema. Oropharynx is moist, is a Mallampati #4 oropharynx. No gross jugular venous distention, no thyromegaly. Grossly, no palpable lymph nodes in the supraclavicular or submandibular lymph node chains. LUNGS: Auscultation of lung murillo significant really for diminished bilateral breath sounds, faint inspiratory rales in the bases posteriorly. No wheezing. HEART: Heart sounds 1 and 2 were heard at the time of my evaluation, regular rate and rhythm with occasional extrasystoles. Soft systolic murmur was heard. ABDOMEN: Soft, full, protuberant. Bowel sounds are positive, nontender, no palpable hepatosplenomegaly. EXTREMITIES: Without overt digital clubbing or cyanosis. Trace pedal edema. Pedal pulses are palpable and strong bilaterally. NEUROLOGIC: Pupils are equal, round, about 3-4 mm, reactive to light. Extraocular muscle movements are intact. She moves all 4 extremities spontaneously. No fasciculations. No spasticity. SKIN: The skin is of normal turgor without overt cellulitis or rash. LABORATORY DATA: From my review, white cell count 5100 with a hemoglobin of 13.6, hematocrit of 42.5, and platelet count of 136, that was at presentation. No manual differential. INR 0.97. Serum sodium 142, potassium 4.7, chloride 105, bicarbonate 25, BUN 18, creatinine 1.3, glucose was 96. Liver function tests essentially within normal limits. Albumin was slightly low at 3.6. BUN is 218 with a creatinine of 1.3. No microbiology studies. DIAGNOSTIC DATA: Chest x-ray has been reviewed. She definitely has gross cardiomegaly. The film is rotated to the left. Mild increased interstitial markings consistent with mild interstitial edema, no pleural effusions. No pneumothorax. No bony fracture. ASSESSMENT: 1. Symptomatic bradycardia. 2. Atrial fibrillation, status post ablation. 3. Hypertensive emergency, at presentation. 4. Acute congestive heart failure exacerbation. I do not have 2D echocardiogram. I will follow. 5. Morbid obesity. 6. Possible sleep apnea. 7. Acute hypoxemic respiratory failure, on mechanical ventilatory support. 8. Hyperlipidemia. 9. Chronic kidney disease. 10. History of glaucoma. PLAN: She is doing much better. Coreg has been stopped. Antihypertensive medication and rate control medications have been adjusted. She has been seen by the roofing tile sorter. Troponins have remained within normal limits. A 2D echocardiogram will be followed. We will continue to wean oxygen to keep sats greater than or equal to over 90%. Aspiration precautions will be maintained. I will order p.r.n. albuterol treatments. I have advised her to seek outpatient Sleep Clinic evaluation/polysomnogram. She is on GI prophylaxis appropriately. She is on also DVT prophylaxis. Weight loss has been counseled. Flu and pneumonia vaccination will be addressed per protocol. She is nonoliguric. Thank you very much for the consult. I think she is doing good enough to go back to the telemetry floor at this time. Cardiology has no plans for acute intervention. We will follow along and make further recommendations as picture progresses/becomes clearer. JOB# [id number] KAILEY/LISA
[2019-03-29] MEDS: URSO PO SCH ×2 (08:55→14:18)
[2019-03-29] MEDS: ASPIRIN PO SCH (09:42)
[2019-03-29] MEDS: NORVASC PO SCH (09:42)
[2019-03-29] MEDS: COLACE PO SCH (09:42)
[2019-03-29] MEDS: PEPCID PO SCH (09:42)
[2019-03-29] MEDS: LASIX PO SCH (09:42)
[2019-03-29] MEDS: DIOVAN PO SCH (09:44)
[2019-03-29] MEDS: SODIUM CHLORIDE FLUSH SYRINGE 10 ML IV SCH (09:44)
[2019-03-29] MEDS: HEPARIN SUB-Q SCH (09:45)
--- NOTE | 2019-03-29 12:03 | Progress Note ---
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 No evidence of high grade AV block. patient has an outpatient 30 day event monitor H/O Atrial flutter s/p ablation anticoagulation therapy previously discontinued for vaginal bleeding Left ventricular ejection fraction of 55% by echocardiogram 02/2019. Recommend: Avoid negative chronotropic or AV node blocking agent Otherwise stable, she can be discharged at that point with continued outpatient 30 day event monitor. Follow up with Dr Alexis as previously scheduled. Subjective Date of service: 03/29/19 Principal diagnosis: hypertensive emergency and shortness of breath Interval history: Patient reports she is feeling better. Objective Vital Signs Temp Pulse Resp BP Pulse Ox 03/29/19 09:44 152/87 03/29/19 09:42 152/87 03/29/19 09:24 18 176/94 03/29/19 08:00 61 03/29/19 03:23 98.2 F 68 18 123/69 97 03/29/19 00:00 67 03/28/19 23:33 98.5 F 71 20 152/95 95 03/28/19 22:24 65 153/90 03/28/19 22:08 153/90 03/28/19 20:00 97 03/28/19 19:57 98.3 F 74 19 170/92 96 03/28/19 19:31 167/95 96 03/28/19 19:21 71 18 135/80 96 03/28/19 19:11 65 22 144/81 98 03/28/19 19:01 62 16 144/81 93 03/28/19 18:51 70 13 155/110 98 03/28/19 18:41 74 14 153/78 99 03/28/19 18:31 75 20 153/78 95 03/28/19 18:21 71 19 144/78 100 03/28/19 18:11 71 16 157/88 99 03/28/19 18:00 72 14 157/88 97 03/28/19 17:31 73 11 L 165/101 96 03/28/19 17:01 73 21 159/102 96 03/28/19 16:31 69 22 159/143 94 03/28/19 16:01 61 18 140/83 97 03/28/19 16:00 98.0 F 71 98 03/28/19 15:31 55 L 21 145/79 93 03/28/19 15:00 71 25 H 137/68 94 03/28/19 14:31 71 19 126/63 95 03/28/19 14:00 66 22 116/68 94 03/28/19 13:30 58 L 17 122/66 95 03/28/19 13:00 62 18 136/68 94 03/28/19 12:31 72 13 149/102 93 03/28/19 12:00 98.0 F 61 21 138/77 96 - Physical Examination General: No Apparent Distress HEENT: Positive: PERRL Neck: Positive: trachea midline Cardiac: Positive: Regular Rhythm Lungs: Positive: Decreased Breath Sounds Neuro: Positive: Grossly Intact, Weakness Extremities: Absent: edema
--- NOTE | 2019-03-29 14:06 | Progress Note ---
Assessment and Plan - Patient Problems (1) BISHOP (dyspnea on exertion) Current Visit: Yes Status: Acute (2) Elevated troponin Current Visit: Yes Status: Acute (3) Renal insufficiency Current Visit: Yes Status: Acute (4) Uncontrolled hypertension Current Visit: Yes Status: Acute (5) Chest pain Current Visit: No Status: Acute Subjective Date of service: 03/29/19 Principal diagnosis: hypertensive emergency and shortness of breath Objective Vital Signs - 12hr 03/29/19 03/29/19 03/29/19 03:23 08:00 09:24 Temperature 98.2 F Pulse Rate 68 61 Respiratory 18 18 Rate Blood Pressure 123/69 176/94 O2 Sat by Pulse 97 Oximetry 03/29/19 03/29/19 03/29/19 09:42 09:44 12:33 Temperature 97.2 F L Pulse Rate Respiratory 18 Rate Blood Pressure 152/87 152/87 155/74 O2 Sat by Pulse Oximetry 03/29/19 12:48 Temperature Pulse Rate Respiratory Rate Blood Pressure O2 Sat by Pulse 96 Oximetry CBC and BMP: 03/28/19 04:32 03/28/19 04:32 ABG, PT/INR, D-dimer: PT/INR, D-dimer PT 13.5 Sec. (12.2-14.9) 03/26/19 23:13 INR 0.97 (0.87-1.13) 03/26/19 23:13 Abnormal lab findings: Abnormal Labs 03/26/19 03/26/19 03/26/19 18:06 18:06 21:02 MCH 27 L RDW 15.3 H Plt Count 136 L Lymph % (Auto) 38.[address] [place] % (Auto) 11.4 H Chloride BUN 18 H Creatinine 1.3 H Glucose POC Glucose ALT Troponin T 0.307 H* NT-Pro-B Natriuret Pep Total Protein Albumin 3.6 L LDL Cholesterol Direct 40 L 03/26/19 03/27/19 03/28/19 22:58 04:35 04:32 MCH RDW 15.6 H Plt Count 129 L Lymph % (Auto) 40.[address] [place] % (Auto) 13.1 H Chloride BUN Creatinine Glucose POC Glucose 118 H ALT Troponin T NT-Pro-B Natriuret Pep 1303 H Total Protein Albumin LDL Cholesterol Direct 03/28/19 04:32 MCH RDW Plt Count Lymph % (Auto) [place] % (Auto) Chloride 108.2 H BUN 18 H Creatinine 1.3 H Glucose 112 H POC Glucose ALT 6 L Troponin T NT-Pro-B Natriuret Pep Total Protein 5.7 L Albumin 3.1 L LDL Cholesterol Direct Chest x-ray: report reviewed (No acute pulmonary findings.), image reviewed
[2019-03-29 18:13] VITALS: BP 136/69
--- NOTE | 2019-03-29 18:55 | Progress Note ---
Assessment and Plan Hypertensive emergency with SBP of 203 -On antihypertensives Blood pressure in control now Chronic kidney disease stage III -Creatinine level is about baseline Creatinine 1.3 History of atrial fibrillation status post ablation -Heart rate controlled Hyperlipidemia -On statin Bradycardia Coreg stopped Amiodarone stopoed Overactive bladder -Home medications resumed DVT prophylaxis with heparin Subjective Date of service: 03/28/19 Principal diagnosis: hypertensive emergency and shortness of breath Interval history: Patient admitted for shortness of breath and uncontrolled blood pressure. BP improved and HR improved Objective - Constitutional Vitals: Vital Signs - 12hr 03/29/19 03/29/19 03/29/19 08:00 09:24 09:42 Temperature Pulse Rate 61 Respiratory 18 Rate Blood Pressure 176/94 152/87 O2 Sat by Pulse Oximetry 03/29/19 03/29/19 03/29/19 09:44 12:33 12:48 Temperature 97.2 F L Pulse Rate Respiratory 18 Rate Blood Pressure 152/87 155/74 O2 Sat by Pulse 96 Oximetry 03/29/19 03/29/19 16:00 17:02 Temperature 97.8 F Pulse Rate 61 57 L Respiratory 18 Rate Blood Pressure 136/69 O2 Sat by Pulse 87 Oximetry General appearance: Present: no acute distress, well-nourished - EENT Eyes: PERRL, EOM intact ENT: hearing intact, clear oral mucosa Ears: bilateral: normal - Neck Neck: supple, normal ROM - Respiratory Respiratory effort: normal Respiratory: bilateral: CTA - Breasts Breasts: normal - Cardiovascular Heart rate: 58 Rhythm: regular Heart Sounds: Present: S1 & S2. Absent: gallop, rub Extremities: no ischemia, pulses intact, No edema, normal color, Full ROM - Gastrointestinal General gastrointestinal: Present: soft, non-tender, non-distended, normal bowel sounds - Genitourinary Female genitourinary: normal - Integumentary Integumentary: clear, warm, dry - Musculoskeletal Musculoskeletal: 1, strength equal bilaterally - Neurologic Neurologic: moves all extremities - Psychiatric Psychiatric: memory intact, appropriate mood/affect, intact judgment & insight - Labs CBC & Chem 7: 03/28/19 04:32 03/28/19 04:32
--- NOTE | 2019-03-29 18:56 | Discharge Summary ---
Providers - Providers Date of Admission: 03/26/19 23:25 Date of discharge: 03/29/19 Attending physician: BASHIR AREVALO 03/26/19 22:34 Consult to Physician [CONS] Urgent Comment: Dr. Curry spoke with Dr. Garcia @ [phone] Consulting Provider: JOAN GARCIA Physician Instructions: Reason For Exam: sob, mild trop elevation 03/28/19 15:52 Consult to Physician [CONS] Stat Comment: Consulting Provider: LOLI MENDOZA Physician Instructions: SOB Reason For Exam: bradycardia second degree heart block Primary care physician: BASHIR AREVALO Hospitalization Condition: Stable Hospital course: Hypertensive emergency with SBP of 203 -On antihypertensives Blood pressure in control now Chronic kidney disease stage III -Creatinine level is about baseline Creatinine 1.3 History of atrial fibrillation status post ablation -Heart rate controlled Hyperlipidemia -On statin Bradycardia Coreg stopped Amiodarone stopoed Overactive bladder -Home medications resumed DVT prophylaxis with heparin Patient has a history of chronic hypertension, atrial flutter ablation, and was hospitalized 3 weeks ago with near syncope. At that time were concerned about second degree Wenckebach AV block, right bundle branch block and left anterior fascicular block. EP consultation was obtained to assess for possible pacemaker, recommendation was for AV arti blockers to be discontinued, and the patient to have a 30 day event monitor as outpatient. She has been previously determined a poor risk for oral anticoagulation due to severe vaginal bleeding. Echocardiogram showed well-preserved left ventricular systolic ejection fraction 55-60%, with moderate to severe dilatation of the left atrium. The patient is admitted to the hospital at this time with complaints of uncontrolled blood pressure. She states that her home health nurse was uncomfortable with a blood pressure elevation and therefore sent her to the emergency room. The patient denies chest pain, denies unusual shortness of breath, denies palpitations, denies any further syncope. During her course in the hospital, there has been frequent cycles of Wenckebach second degree AV block, similar to what we observed on her last admission. Recommendations: Avoid AV arti blockers, discontinue carvedilol and amiodarone. Otherwise, the patient is stable for discharge, a 30 day event monitor will be recommended on outpatient visit in 7 days. F/u with Dr Poalnco as outpatient Disposition: TO HOME OR SELFCARE Core Measure Documentation - Palliative Care Palliative Care/ Comfort Measures: Not Applicable - Core Measures Any of the following diagnoses?: none Exam - Constitutional Vitals: Temp Pulse Resp BP Pulse Ox 97.8 F 57 L 18 136/69 87 03/29/19 17:02 03/29/19 17:02 03/29/19 17:02 03/29/19 17:02 03/29/19 17:02 General appearance: Present: no acute distress, well-nourished - EENT Eyes: Present: PERRL ENT: hearing intact, clear oral mucosa - Neck Neck: Present: supple, normal ROM - Respiratory Respiratory effort: normal Respiratory: bilateral: CTA - Cardiovascular Heart rate: 58 Rhythm: regular Heart Sounds: Present: S1 & S2. Absent: rub, click - Extremities Extremities: pulses symmetrical, No edema Peripheral Pulses: within normal limits - Abdominal General gastrointestinal: Present: soft, non-tender, non-distended, normal bowel sounds Female genitourinary: Present: normal - Integumentary Integumentary: Present: clear, warm, dry - Musculoskeletal Musculoskeletal: gait normal, strength equal bilaterally - Psychiatric Psychiatric: appropriate mood/affect, intact judgment & insight - Neurologic Neurologic: CNII-XII intact, moves all extremities Plan Activity: no restrictions Diet: low fat, low cholesterol, low salt Follow up with: CLARITA GALAVIZ MD [Staff Physician] - 3-5 Days ISRAEL POLANCO MD [Staff Physician] - 7 Days BASHIR AREVALO MD [Primary Care Provider] - 7 Days
== END 2019-03-29 19:45 | disposition home health service (06) | DRG 291 ==
LOC: ED 17:52 → 4A 23:25 → CC1 03-27 05:06 → 4A 03-28 20:15
PROVIDERS: ADMIT Internal Medicine; ATTEND Internal Medicine
DX: I13.0 Hypertensive heart and chronic kidney disease with heart failure and stage 1 through stage 4 chronic kidney disease, or unspecified chronic kidney disease (principal); J96.01 Acute respiratory failure with hypoxia; I16.1 Hypertensive emergency; N18.3 Chronic kidney disease, stage 3 (moderate); I48.91 Unspecified atrial fibrillation; E78.5 Hyperlipidemia, unspecified; N32.81 Overactive bladder; R00.1 Bradycardia, unspecified; I44.0 Atrioventricular block, first degree; I45.10 Unspecified right bundle-branch block; I50.9 Heart failure, unspecified; E66.01 Morbid (severe) obesity due to excess calories; Z87.442 Personal history of urinary calculi; Z88.0 Allergy status to penicillin; Z79.899 Other long term (current) drug therapy
CPT/HCPCS: 36415; 71046; 80053; 80061; 82962; 83880; 84484; 85025; 85610; 85730; 93005; 93010; 94760; G0378; A9270-GY; J1644; J2270; J2785

== ENCOUNTER 2019-04-18 12:43 | Inpatient (IN) | payer MEDICARE ==
--- NOTE | 2019-04-18 12:54 | Event Note ---
ED Screening Note ED Screening Note: pt presents to the ED with c/o generalized abdominal pain for two nights no N/V/D BM yesterday no fever states she has "gallbladder problems" was transferred from here to [facility] for fishbone removal, she states they were able to remove no urinary sx This initial assessment/diagnostic orders/clinical plan/treatment(s) is/are subject to change based on patients health status, clinical progression and re- assessment by fellow clinical providers in the ED. Further treatment and workup at subsequent clinical providers discretion. Patient/guardian urged not to elope from the ED as their condition may be serious if not clinically assessed and managed. Initial orders include: labs, UA, XR abd with chest further evaluation in the main ED by
[2019-04-18 13:31] LABS: Basophils % (Auto) 0.4 % (0.0-1.8); Eosinophils % (Auto) 0.5 % (0.0-4.3); Hematocrit 40.6 % (30.3-42.9); Hemoglobin 13.4 gm/dl (10.1-14.3); Lymphocytes # (Auto) 1.2 K/mm3 (1.2-5.4); Lymphocytes % (Auto) 16.5 % (13.4-35.0); Mean Corpuscular HGB Conc 33 % (30-34); Mean Corpuscular Volume 85 fl (79-97); Monocytes # (Auto) 0.8 K/mm3 (0.0-0.8); Monocytes % (Auto) 10.3 % (0.0-7.3); Platelet Count 155 K/mm3 (140-440); Red Blood Count 4.76 M/mm3 (3.65-5.03); Red Cell Distribution Width 15.2 % (13.2-15.2)
[2019-04-18] MEDS ORDERED: ZOFRAN IV ONE (13:57)
[2019-04-18] MEDS ORDERED: MORPHINE IV ONE (13:57)
[2019-04-18] MEDS ORDERED: PEPCID IV ONE (13:58)
--- NOTE | 2019-04-18 14:02 | Emergency Department Report ---
ED Abdominal Pain HPI - General Chief Complaint: Abdominal Pain Stated Complaint: ABD PAIN Time Seen by Provider: 04/18/19 13:36 Source: patient Mode of arrival: Ambulatory Limitations: Physical Limitation - History of Present Illness Initial Comments: 83-year-old female with a past medical history of hypertension, elevated cholesterol, atrial fibrillation, chronic kidney disease, AV arti block, and CHF presents to the hospital complaints of abdominal pain 2 days. Patient states that the pain is achy, constant, worse with palpation, and moves around her entire abdomen. Patient has known "gallbladder issues" and is concerned that may be cause of her pain. She is tolerating by mouth intake. She denies nausea, vomiting, diarrhea, melena, hematochezia, dysuria, or fever. Last bowel movement was yesterday. Only abdominal surgery in the past with a hysterectomy. Patient was admitted here earlier this month were uncontrolled hypertension and heart related issues. She then was seen in the ER on April 14 with a fish bone stuck in her hypopharynx [place] [facility] [place]. - Related Data Home Medications Medication Instructions Recorded Confirmed Last Taken Potassium Chloride [K-Dur] 20 meq PO QDAY 03/03/19 04/14/19 03/26/19 Ibuprofen 800 mg PO Q6HR PRN 03/04/19 04/14/19 03/26/19 Furosemide [Lasix TAB] 40 mg PO UNK 04/14/19 04/14/19 Unknown oxyCODONE /ACETAMINOPHEN [Percocet 5 tab PO Q6H PRN 04/14/19 04/14/19 Unknown 5/325 mg] Previous Rx's Medication Instructions Recorded Last Taken Type Ecotrin 81 mg PO QHS #30 07/16/16 03/26/19 Rx Omeprazole 40 mg PO DAILY #30 capsule. 07/16/16 03/26/19 Rx Simvastatin (Nf) [Zocor TAB] 20 mg PO DAILY #30 tablet 07/16/16 03/26/19 Rx AtorvaSTATin [Lipitor] 20 mg PO QHS #30 tablet 03/29/19 Unknown Rx Myrbetriq 25 mg PO DAILY 03/29/19 Unknown Rx Potassium Chloride [K-Dur] 20 meq PO QDAY #30 tablet 03/29/19 Unknown Rx Ursodiol [Liberty] 250 mg PO TID tablet 03/29/19 Unknown Rx Valsartan [Diovan] 160 mg PO BID #60 tablet 03/29/19 Unknown Rx amLODIPine [Norvasc] 10 mg PO DAILY #30 tab 03/29/19 Unknown Rx Allergies Allergy/AdvReac Type Severity Reaction Status Date / Time amiodarone Allergy Unknown Verified 03/27/19 04:48 carvedilol [From Coreg] Allergy Unknown Verified 03/27/19 04:47 Penicillins Allergy Unknown Verified 03/26/19 18:01 warfarin [From Coumadin] Allergy Unknown Verified 03/26/19 18:01 ED Review of Systems ROS: Stated complaint: ABD PAIN Other details as noted in HPI Comment: All other systems reviewed and negative ED Past Medical Hx - Past Medical History Previous Medical History?: Yes Hx Hypertension: Yes Hx Heart Attack/AMI: No Hx Congestive Heart Failure: No Hx Diabetes: No Hx Deep Vein Thrombosis: No Hx Pulmonary Embolism: No Hx Liver Disease: No Hx Renal Disease: No Hx Sickle Cell Disease: No Hx Kidney Stones: Yes Hx Asthma: No Hx COPD: No Hx Tuberculosis: No Hx HIV: No Additional medical history: high cholesterol, glaucoma. A-fib. Cholelithiasis - Surgical History Past Surgical History?: Yes Hx Coronary Stent: No Hx Open Heart Surgery: No Hx Pacemaker: No Hx Internal Defibrillator: No Hx Cholecystectomy: No Hx Appendectomy: No Hx Breast Surgery: No Additional Surgical History: Hysterectomy - Social History Smoking Status: Former Smoker Substance Use Type: Prescribed - Medications Home Medications: Home Medications Medication Instructions Recorded Confirmed Last Taken Type Ecotrin 81 mg PO QHS #30 07/16/16 04/14/19 03/26/19 Rx Omeprazole 40 mg PO DAILY #30 capsule. 07/16/16 04/14/19 03/26/19 Rx Simvastatin (Nf) [Zocor TAB] 20 mg PO DAILY #30 tablet 07/16/16 04/14/19 03/26/19 Rx Potassium Chloride [K-Dur] 20 meq PO QDAY 03/03/19 04/14/19 03/26/19 History Ibuprofen 800 mg PO Q6HR PRN 03/04/19 04/14/19 03/26/19 History AtorvaSTATin [Lipitor] 20 mg PO QHS #30 tablet 03/29/19 04/14/19 Unknown Rx Myrbetriq 25 mg PO DAILY 03/29/19 04/14/19 Unknown Rx Potassium Chloride [K-Dur] 20 meq PO QDAY #30 tablet 03/29/19 04/14/19 Unknown Rx Ursodiol [Liberty] 250 mg PO TID tablet 03/29/19 04/14/19 Unknown Rx Valsartan [Diovan] 160 mg PO BID #60 tablet 03/29/19 04/14/19 Unknown Rx amLODIPine [Norvasc] 10 mg PO DAILY #30 tab 03/29/19 04/14/19 Unknown Rx Furosemide [Lasix TAB] 40 mg PO UNK 04/14/19 04/14/19 Unknown History oxyCODONE /ACETAMINOPHEN [Percocet 5 tab PO Q6H PRN 04/14/19 04/14/19 Unknown History 5/325 mg] ED Physical Exam - General Limitations: Physical Limitation - Other Other exam information: General: No limitations, patient is alert in no acute distress Head exam: Atraumatic, normocephalic Eyes exam: Normal appearance, nonicteric sclera ENT: Moist mucous membrane Neck exam: Normal inspection, full range of motion, no meningismus nontender Respiratory exam: Clear to auscultation bilateral, no wheezes, rales, crackles Cardiovascular: Normal rate and rhythm, normal heart sounds Abdomen: Soft, questionable distended abdomen (She is unsure if it is her baseline abdominal size) right upper quadrant and epigastric tenderness, with normal bowel sounds, no rebound, or guarding Extremity: Full range of motion normal inspection no deformity Back: Normal Inspection, full range of motion, no tenderness Neurologic: Alert, oriented x3, cranial nerves intact, no motor or sensory deficit Psychiatric: normal affect, normal mood Skin: Warm, dry, intact ED Course Vital Signs 04/18/19 12:44 Temperature 98.5 F Pulse Rate 87 Respiratory 18 Rate Blood Pressure 144/95 O2 Sat by Pulse 100 Oximetry - Consultations Consultation #1: 04/18/19 18:[address] Calvillo, request abdominal series xray in am (I ordered it). will consult ED Medical Decision Making - Lab Data Result diagrams: 04/18/19 13:14 04/18/19 13:14 Lab Results 04/18/19 04/18/19 Range/Units 13:14 13:14 WBC 7.6 (4.5-11.0) K/mm3 RBC 4.76 (3.65-5.03) M/mm3 Hgb 13.4 (10.1-14.3) gm/dl Hct 40.6 (30.3-42.9) % MCV 85 (79-97) fl MCH 28 (28-32) pg MCHC 33 (30-34) % RDW 15.2 (13.2-15.2) % Plt Count 155 (140-440) K/mm3 Lymph % (Auto) 16.5 (13.4-35.0) % Holt % (Auto) 10.3 H (0.0-7.3) % Eos % (Auto) 0.5 (0.0-4.3) % Baso % (Auto) 0.4 (0.0-1.8) % Lymph # 1.2 (1.2-5.4) K/mm3 Holt # 0.8 (0.0-0.8) K/mm3 Eos # 0.0 (0.0-0.4) K/mm3 Baso # 0.0 (0.0-0.1) K/mm3 Seg Neutrophils % 72.3 H (40.0-70.0) % Seg Neutrophils # 5.5 (1.8-7.7) K/mm3 Sodium 142 (137-145) mmol/L Potassium 4.3 (3.6-5.0) mmol/L Chloride 104.6 (98-107) mmol/L Carbon Dioxide 24 (22-30) mmol/L Anion Gap 18 mmol/L BUN 21 H (7-17) mg/dL Creatinine 1.4 H (0.7-1.2) mg/dL Estimated GFR 43 ml/min BUN/Creatinine Ratio 15 % Glucose 127 H (65-100) mg/dL Calcium 9.6 (8.4-10.2) mg/dL Total Bilirubin 0.80 (0.1-1.2) mg/dL AST 16 (5-40) units/L ALT 8 (7-56) units/L Alkaline Phosphatase 58 (35-129) units/L Total Protein 6.4 (6.3-8.2) g/dL Albumin 3.5 L (3.9-5) g/dL Albumin/Globulin Ratio 1.2 % Lipase 12 L (13-60) units/L - Radiology Data Radiology results: report reviewed PROCEDURE: XR ABD SERIES W CXR 1V TECHNIQUE: AP chest with flat and upright abdomen HISTORY: abd pain/hx of CHF COMPARISONS: Prior radiographs from April 15 and April 14. FINDINGS: Cardiac silhouette is enlarged and unchanged since the prior radiograph. Uncoiling of the thoracic aorta, unchanged. Atelectatic changes and pleural parenchymal scarring in the lingula. No airspace consolidation or pleural effusions. Pulmonary vasculature within normal limits. Nonspecific bowel gas pattern with no evidence of bowel obstruction or free intraperitoneal air. Calcifications projected in the left mid abdomen most consistent with renal calculi. IMPRESSION: Cardiomegaly, unchanged since the prior radiographs. Linear atelectasis of pleural parenchymal scarring in the lingula. Calcifications projecting in the left midabdomen most consistent with renal calculi consider further evaluation with ultrasound or noncontrast CT clinically indicated. Nonspecific bowel gas pattern with no evidence of bowel obstruction or free intraperitoneal air. PROCEDURE: CT ABDOMEN PELVIS WO CON TECHNIQUE: Computerized axial tomography of the abdomen and pelvis was performed without intravenous contrast. This study is performed without intravascular contrast material and its sensitivity for abdominal and pelvic pathology, including neoplasms, inflammation, abscess, free fluid, thrombosis, arterial dissection and infarction, is reduced compared with a contrast enhanced study. CT DOSE LENGTH PRODUCT: 1614 mGycm HISTORY: gen abd pain greatest ruq COMPARISONS: Ultrasound 04/18/2019, CT 01/11/2019 . FINDINGS: Visualized lower thorax: Prominent heart size. Mild bibasilar parenchymal scarring. Liver: Normal size and attenuation. Spleen: Normal size and attenua tion. Gallbladder and biliary system: Cholelithiasis. No biliary ductal dilatation. Pancreas: Normal. Adrenals: Normal. Kidneys: No hydroureteronephrosis bilaterally. Bilateral renal cysts are present. Largest cyst is in the left kidney lower pole, measuring up to 8.8 cm. 2 left renal calculi are present, measuring up to 14 mm. GI tract: No appendiceal inflammation. Proximal to mid small bowel loops are fluid-filled and dilated up to 2.9 cm in caliber. Distal small bowel loops are decompressed. Findings are compatible with small bowel obstruction. Transition point is likely in the lower anterior abdomen. No acute inflammation . Lymph nodes and mesentery: Normal. Vasculature: Mild aortic atherosclerotic calcification. Bladder: Normal. Reproductive organs: Uterus is absent. Peritoneum: No free fluid. Musculoskeletal structures: Multilevel thoracolumbar spine degenerative disc changes. Other: None. IMPRESSION: Findings are compatible with early small bowel obstruction. Cholelithiasis. Left renal calculi PROCEDURE: US ABDOMEN LIMITED TECHNIQUE: Ultrasound of the right upper quadrant of the abdomen was performed HISTORY: ruq pain COMPARISONS: CT of the abdomen and pelvis performed on 01/11/2019 FINDINGS: Pancreas: Obscured by bowel gas Liver appearance: Normal echogenicity. No focal internal lesion visualizedNo biliary ductal dilatation. CBD: 1.4mm. Gallbladder: Multiple stones measuring up to 2.1 cm. No pericholecystic fluid or gallbladder wall thickening. Right kidney length: 10cm. Right kidney appearance: Normal cortical thickness. No hydronephrosis. 2 simple appearing cysts of the right kidney. The more superior cyst measures 2.6 cm. The interpolar cyst measures 5.2 cm. IMPRESSION: Cholelithiasis without evidence for cholecystitis. Simple appearing right renal cysts. - Differential Diagnosis constipation, CHF, obstruction, biliary colic, cholecystitis, pancreatitis, Critical Care Time: No Critical care attestation.: If time is entered above; I have spent that time in minutes in the direct care of this critically ill patient, excluding procedure time. ED Disposition Clinical Impression: Cholelithiasis, Chronic kidney disease (CKD), SBO (small bowel obstruction) Disposition: DC-[id number] OP ADMIT IP TO THIS HOSP Is pt being admited?: Yes Condition: Stable Time of Disposition: 18:44 (Dr Mcfadden/hosp)
[2019-04-18] MEDS ORDERED: DILAUDID IM ONE (14:42)
[2019-04-18] MEDS ORDERED: ZOFRAN ODT PO ONE (14:42)
[2019-04-18] MEDS ORDERED: DILAUDID ONE (14:45)
[2019-04-18 14:47] LABS: Albumin 3.5 g/dL (3.9-5); Calcium 9.6 mg/dL (8.4-10.2)
--- NOTE | 2019-04-18 14:56 | XRay Report ---
PROCEDURE: XR ABD SERIES W CXR 1V TECHNIQUE: AP chest with flat and upright abdomen HISTORY: abd pain/hx of CHF COMPARISONS: Prior radiographs from April 15 and April 14. FINDINGS: Cardiac silhouette is enlarged and unchanged since the prior radiograph. Uncoiling of the thoracic aorta, unchanged. Atelectatic changes and pleural parenchymal scarring in the lingula. No airspace consolidation or pleural effusions. Pulmonary vasculature within normal limits. Nonspecific bowel gas pattern with no evidence of bowel obstruction or free intraperitoneal air. Calcifications projected in the left mid abdomen most consistent with renal calculi. IMPRESSION: Cardiomegaly, unchanged since the prior radiographs. Linear atelectasis of pleural parenchymal scarring in the lingula. Calcifications projecting in the left midabdomen most consistent with renal calculi consider further evaluation with ultrasound or noncontrast CT clinically indicated. Nonspecific bowel gas pattern with no evidence of bowel obstruction or free intraperitoneal air. . This document is electronically signed by Oliver Robles MD., April 18 2019 02:54:31 PM ET
--- NOTE | 2019-04-18 16:46 | Ultrasound Report ---
PROCEDURE: US ABDOMEN LIMITED TECHNIQUE: Ultrasound of the right upper quadrant of the abdomen was performed HISTORY: ruq pain COMPARISONS: CT of the abdomen and pelvis performed on 01/11/2019 FINDINGS: Pancreas: Obscured by bowel gas Liver appearance: Normal echogenicity. No focal internal lesion visualizedNo biliary ductal dilatatio n. CBD: 1.4mm. Gallbladder: Multiple stones measuring up to 2.1 cm. No pericholecystic fluid or gallbladder wall thi ckening. Right kidney length: 10cm. Right kidney appearance: Normal cortical thickness. No hydronephrosis. 2 simple appearing cysts of th e right kidney. The more superior cyst measures 2.6 cm. The interpolar cyst measures 5.2 cm. IMPRESSION: Cholelithiasis without evidence for cholecystitis. Simple appearing right renal cysts. This document is electronically signed by Nikky Garcia MD., April 18 2019 04:43:38 PM ET
--- NOTE | 2019-04-18 18:04 | Cat Scan Report ---
PROCEDURE: CT ABDOMEN PELVIS WO CON TECHNIQUE: Computerized axial tomography of the abdomen and pelvis was performed without intravenous contrast. This study is performed without intravascular contrast material and its sensitivity for ab dominal and pelvic pathology, including neoplasms, inflammation, abscess, free fluid, thrombosis, art erial dissection and infarction, is reduced compared with a contrast enhanced study. CT DOSE LENGTH PRODUCT: 1614 mGycm HISTORY: gen abd pain greatest ruq COMPARISONS: Ultrasound 04/18/2019, CT 01/11/2019 . FINDINGS: Visualized lower thorax: Prominent heart size. Mild bibasilar parenchymal scarring. Liver: Normal size and attenuation. Spleen: Normal size and attenuation. Gallbladder and biliary system: Cholelithiasis. No biliary ductal dilatation. Pancreas: Normal. Adrenals: Normal. Kidneys: No hydroureteronephrosis bilaterally. Bilateral renal cysts are present. Largest cyst is in the left kidney lower pole, measuring up to 8.8 cm. 2 left renal calculi are present, measuring up to 14 mm. GI tract: No appendiceal inflammation. Proximal to mid small bowel loops are fluid-filled and dilate d up to 2.9 cm in caliber. Distal small bowel loops are decompressed. Findings are compatible with sm all bowel obstruction. Transition point is likely in the lower anterior abdomen. No acute inflammatio n . Lymph nodes and mesentery: Normal. Vasculature: Mild aortic atherosclerotic calcification. Bladder: Normal. Reproductive organs: Uterus is absent. Peritoneum: No free fluid. Musculoskeletal structures: Multilevel thoracolumbar spine degenerative disc changes. Other: None. IMPRESSION: Findings are compatible with early small bowel obstruction. Cholelithiasis. Left renal calculi This document is electronically signed by Ameena Cerna MD., April 18 2019 06:02:19 PM ET
[2019-04-18 19:00] LABS: Bilirubin,Urine NEG (Negative); Blood,Urine NEG (Negative); Color,Urine Yellow (Yellow); Mucus,Urine FEW /HPF; Protein,Urine <15 mg/dL mg/dL (Negative); WBC,Urine < 1.0 /HPF (0.0-6.0)
[2019-04-18] MEDS ORDERED: ZOFRAN IV PRN (19:39)
[2019-04-18] MEDS ORDERED: TYLENOL PO PRN (19:39)
[2019-04-18] MEDS ORDERED: TORADOL ONE (19:48)
[2019-04-18] MEDS: TORADOL IV PRN (19:50)
--- NOTE | 2019-04-18 19:55 | History and Physical Report ---
History of Present Illness Date of examination: 04/18/19 Date of admission: 04/18/19 18:44 Chief complaint: Abdominal pain History of present illness: 83-year-old -Citizen Of [place] female with history of CKD3, hypertension, A. fib status post ablation who presents to [facility] ED with complaints of right upper quadrant abdominal pain. Patient states that for the past 2 days she has been experiencing diffuse abdominal pain. She describes the pain as achy and rates it 7/10. The pain is constant with periods of variation in intensity. She states that she has known "gallbladder issues" and is concerned that the pain is related to her gallbladder. She is present at beside and is also concerned about her mother's "gallbladder pain". Patient daughter is a nurse and works at [employer]. Patient lives alone and daughter is concerned about her mother's ability to self-care. Daughter would like assistance with home health care services. Denies: Constipation, n/v/d, diaphoresis, chest pain, fever, headache, melena, or hematochezia Review of chart shows that patient was admitted and treated for hypertensive urgency. She was seen in the ED on 04/14/19 with complaints of fish bone stuck in her hypopharynx. She was subsequently transferred to [facility] for removal of fish bone. Past History Past Medical History: atrial fib (s/p ablation), hypertension, hyperlipidemia, renal failure (ckd3), other (kidney stones, conduction system disease, glaucoma, overactive bladder) Past Surgical History: Other (ablation) Social history: Lives alone Family history: no significant family history Medications and Allergies Allergies Allergy/AdvReac Type Severity Reaction Status Date / Time amiodarone Allergy Unknown Verified 03/27/19 04:48 carvedilol [From Coreg] Allergy Unknown Verified 03/27/19 04:47 Penicillins Allergy Unknown Verified 03/26/19 18:01 warfarin [From Coumadin] Allergy Unknown Verified 03/26/19 18:01 Home Medications Medication Instructions Recorded Confirmed Last Taken Type Ecotrin 81 mg PO QHS #30 07/16/16 04/14/19 03/26/19 Rx Omeprazole 40 mg PO DAILY #30 capsule. 07/16/16 04/14/19 03/26/19 Rx Simvastatin (Nf) [Zocor TAB] 20 mg PO DAILY #30 tablet 07/16/16 04/14/1903/26/19 Rx Potassium Chloride [K-Dur] 20 meq PO QDAY 03/03/19 04/14/19 03/26/19 History Ibuprofen 800 mg PO Q6HR PRN 03/04/19 04/14/19 03/26/19 History AtorvaSTATin [Lipitor] 20 mg PO QHS #30 tablet 03/29/19 04/14/19 Unknown Rx Myrbetriq 25 mg PO DAILY 03/29/19 04/14/19 Unknown Rx Potassium Chloride [K-Dur] 20 meq PO QDAY #30 tablet 03/29/19 04/14/19 Unknown Rx Ursodiol [Liberty] 250 mg PO TID tablet 03/29/19 04/14/19 Unknown Rx Valsartan [Diovan] 160 mg PO BID #60 tablet 03/29/19 04/14/19 Unknown Rx amLODIPine [Norvasc] 10 mg PO DAILY #30 tab 03/29/19 04/14/19 Unknown Rx Furosemide [Lasix TAB] 40 mg PO UNK 04/14/19 04/14/19 Unknown History oxyCODONE /ACETAMINOPHEN [Percocet 5 tab PO Q6H PRN 04/14/19 04/14/19 Unknown History 5/325 mg] Active Meds: Active Medications Acetaminophen (Tylenol) 650 mg PO Q4H PRN PRN Reason: Pain MILD(1-3)/Fever >100.5/BOWMAN Ketorolac Tromethamine (Toradol) 15 mg IV Q6H PRN PRN Reason: Pain, Mild (1-3) Stop: 04/23/19 19:25 Ondansetron HCl (Zofran) 4 mg IV Q8H PRN PRN Reason: Nausea And Vomiting Sodium Chloride (Sodium Chloride Flush Syringe 10 Ml) 10 ml IV BID BHAKTI Sodium Chloride (Sodium Chloride Flush Syringe 10 Ml) 10 ml IV PRN PRN PRN Reason: LINE FLUSH Review of Systems All systems: negative (reviewed and no additional remarkable complaints except as noted below) Respiratory: cough Gastrointestinal: abdominal pain Exam - Physical Exam Narrative exam: Physical exam General appearance: Present: No acute distress, alert and oriented 3, obese, -Citizen [place] old female, well developed - EENT Eyes: Present: PERRL, EOM intact ENT: hearing intact, poor dentition - Neck Neck: Present: supple, normal ROM - Respiratory Respiratory effort: Non-labored Respiratory: bilateral: diminished (bases) - Cardiovascular Heart rate: 83 (bpm) Rhythm: SR Heart Sounds: Present: S1 & S2. Absent: rub, click - Extremities Extremities: no ischemia, pulses intact, abnormal () - Peripheral Assessment Peripheral Pulses: within normal limits - Abdominal General gastrointestinal: Obese, soft, right upper quadrant and epigastric tenderness, normal bowel sounds - Integumentary Integumentary: Present: warm, dry - Musculoskeletal Musculoskeletal: Abnormal extremities -Neurological Neurological: CN II-XII grossly intact - Psychiatric Psychiatric: Poor historian, cooperative - Constitutional Vitals: Temp Pulse Resp BP Pulse Ox 98.5 F 83 15 114/69 98 04/18/19 12:44 04/18/19 19:18 04/18/19 19:18 04/18/19 19:18 04/18/19 19:18 Results - Labs CBC & Chem 7: 04/18/19 13:14 04/18/19 13:14 Labs: Laboratory Last Values WBC 7.6 K/mm3 (4.5-11.0) 04/18/19 13:14 RBC 4.76 M/mm3 (3.65-5.03) 04/18/19 13:14 Hgb 13.4 gm/dl (10.1-14.3) 04/18/19 13:14 Hct 40.6 % (30.3-42.9) 04/18/19 13:14 MCV 85 fl (79-97) 04/18/19 13:14 MCH 28 pg (28-32) 04/18/19 13:14 MCHC 33 % (30-34) 04/18/19 13:14 RDW 15.2 % (13.2-15.2) 04/18/19 13:14 Plt Count 155 K/mm3 (140-440) 04/18/19 13:14 Lymph % (Auto) 16.5 % (13.4-35.0) 04/18/19 13:14 [place] % (Auto) 10.3 % (0.0-7.3) H 04/18/19 13:14 Eos % (Auto) 0.5 % (0.0-4.3) 04/18/19 13:14 Baso % (Auto) 0.4 % (0.0-1.8) 04/18/19 13:14 Lymph # 1.2 K/mm3 (1.2-5.4) 04/18/19 13:14 [place] # 0.8 K/mm3 (0.0-0.8) 04/18/19 13:14 Eos # 0.0 K/mm3 (0.0-0.4) 04/18/19 13:14 Baso # 0.0 K/mm3 (0.0-0.1) 04/18/19 13:14 Seg Neutrophils % 72.3 % (40.0-70.0) H 04/18/19 13:14 Seg Neutrophils # 5.5 K/mm3 (1.8-7.7) 04/18/19 13:14 Sodium 142 mmol/L (137-145) 04/18/19 13:14 Potassium 4.3 mmol/L (3.6-5.0) 04/18/19 13:14 Chloride 104.6 mmol/L (98-107) 04/18/19 13:14 Carbon Dioxide 24 mmol/L (22-30) 04/18/19 13:14 18 mmol/L 04/18/19 13:14 BUN 21 mg/dL (7-17) H 04/18/19 13:14 1.4 mg/dL (0.7-1.2) H 04/18/19 13:14 Estimated GFR 43 ml/min 04/18/19 13:14 15 % 04/18/19 13:14 Glucose 127 mg/dL (65-100) H 04/18/19 13:14 Calcium 9.6 mg/dL (8.4-10.2) 04/18/19 13:14 0.80 mg/dL (0.1-1.2) 04/18/19 13:14 AST 16 units/L (5-40) 04/18/19 13:14 ALT 8 units/L (7-56) 04/18/19 13:14 58 units/L (35-129) 04/18/19 13:14 6.4 g/dL (6.3-8.2) 04/18/19 13:14 3.5 g/dL (3.9-5) L 04/18/19 13:14 1.2 % 04/18/19 13:14 12 units/L (13-60) L 04/18/19 13:14 Yellow (Yellow) 04/18/19 18:44 Cloudy (Clear) 04/18/19 18:44 5.0 (5.0-7.0) 04/18/19 18:44 Ur Specific [place] 1.021 (1.003-1.030) 04/18/19 18:44 <15 mg/dl mg/dL (Negative) 04/18/19 18:44 Neg mg/dL (Negative) 04/18/19 18:44 Neg mg/dL (Negative) 04/18/19 18:44 Neg (Negative) 04/18/19 18:44 Neg (Negative) 04/18/19 18:44 Neg (Negative) 04/18/19 18:44 4.0 mg/dL (<2.0) 04/18/19 18:44 Ur Leukocyte Esterase Neg (Negative) 04/18/19 18:44 < 1.0 /HPF (0.0-6.0) 04/18/19 18:44 1.0 /HPF (0.0-6.0) 04/18/19 18:44 U Epithel Cells (Auto) 1.0 /HPF (0-13.0) 04/18/19 18:44 Few /HPF 04/18/19 18:44 - Imaging and Cardiology Chest x-ray: report reviewed (Cardiomegaly, unchanged since the prior radiographs. Linear atelectasis of pleural parenchymal scarring in the lingula.Calcifications projecting in the left midabdomen most consistent with renal calculi consider further evaluation with ultrasound or noncontrast CT clinically indicated. Nonspecific bowel gas pattern with no evidence of bowel obstruction or free intraperitoneal air. ), image reviewed Imaging and Cardiology: CT Abd/Pelvis: FINDINGS: Visualized lower thorax: Prominent heart size. Mild bibasilar parenchymal scarring. Liver: Normal size and attenuation. Spleen: Normal size and attenuation. Gallbladder and biliary system: Cholelithiasis. No biliary ductal dilatation. Pancreas: Normal. Adrenals: Normal. Kidneys: No hydroureteronephrosis bilaterally. Bilateral renal cysts are present. Largest cyst is in the left kidney lower pole, measuring up to 8.8 cm. 2 left renal calculi are present, measuring up to 14 mm. GI tract: No appendiceal inflammation. Proximal to mid small bowel loops are fluid-filled and dilated up to 2.9 cm in caliber. Distal small bowel loops are decompressed. Findings are compatible with small bowel obstruction. Transition point is likely in the lower anterior abdomen. No acute inflammation . Lymph nodes and mesentery: Normal. Vasculature: Mild aortic atherosclerotic calcification. Bladder: Normal. Reproductive organs: Uterus is absent. Peritoneum: No free fluid. Musculoskeletal structures: Multilevel thoracolumbar spine degenerative disc changes. Other: None. IMPRESSION: Findings are compatible with early small bowel obstruction. Cholelithiasis. Left renal calculi Abd Ultrasound: FINDINGS: Pancreas: Obscured by bowel gas Liver appearance: Normal echogenicity. No focal internal lesion visualizedNo biliary ductal dilatation. CBD: 1.4mm. Gallbladder: Multiple stones measuring up to 2.1 cm. No pericholecystic fluid or gallbladder wall thickening. Right kidney length: 10cm. Right kidney appearance: Normal cortical thickness. No hydronephrosis. 2 simple appearing cysts of the right kidney. The more superior cyst measures 2.6 cm. The interpolar cyst measures 5.2 cm. IMPRESSION: Cholelithiasis without evidence for cholecystitis. Simple appearing right renal cysts. Assessment and Plan Assessment and plan: 83-year-old -Citizen [place] female with history of CKD3, hypertension, A. fib status post ablation who presents to [facility] ED with complaints of right upper quadrant abdominal pain. CT abdomen/pelvis and abdominal ultrasound showed cholelithiasis, and possible small bowel obstruction. Will admit to [facility] unit. Cholelithiasis Small Bowel obstruction-likely Hypotension CK 3 History of hypertension History of A. fib s/p ablation ??CHF Plan: Continue supportive care Continuous remote telemetry monitoring Nothing by mouth Gentle hydration with IVF NS@42ml/hr Pain management Gen Surg (Dr. Calvillo) consulted Abdominal series x-ray pending for a.m. Dr. Quintin Curtis (cardiologists) consulted Monitor BP Patient is hypotensive, hold all anti-hypertensive medication for now Monitor renal function, avoid nephro toxic agents Patient currently lives alone and her daughter has expressed concerns about home care services,[facility] Management consult pending DVT PPX on heparin and SCD's Advance Directives: No VTE prophylaxis?: Chemical Plan of care discussed with patient/family: Yes
[2019-04-18] MEDS ORDERED: NACL 0.9% 1000 ML 1,000 ML IV SCH (20:00)
[2019-04-18] MEDS: NACL 0.9% 1000 ML 1,000 ML IV SCH (23:41)
[2019-04-18] MEDS: HEPARIN SUB-Q SCH (23:42)
[2019-04-18] MEDS: SODIUM CHLORIDE FLUSH SYRINGE 10 ML IV SCH (23:42)
[2019-04-19 06:12] LABS: Basophils # (Auto) 0.1 K/mm3 (0.0-0.1); Basophils % (Auto) 0.9 % (0.0-1.8); Eosinophils # (Auto) 0.1 K/mm3 (0.0-0.4); Eosinophils % (Auto) 1.5 % (0.0-4.3); Hematocrit 36.3 % (30.3-42.9); Hemoglobin 12.1 gm/dl (10.1-14.3); Lymphocytes # (Auto) 1.9 K/mm3 (1.2-5.4); Mean Corpuscular HGB Conc 33 % (30-34); Mean Corpuscular Volume 84 fl (79-97); Monocytes # (Auto) 0.8 K/mm3 (0.0-0.8); Monocytes % (Auto) 12.7 % (0.0-7.3); Platelet Count 130 K/mm3 (140-440); Red Blood Count 4.32 M/mm3 (3.65-5.03); Red Cell Distribution Width 14.9 % (13.2-15.2)
[2019-04-19] MEDS: HEPARIN SUB-Q SCH (10:08)
[2019-04-19] MEDS: SODIUM CHLORIDE FLUSH SYRINGE 10 ML IV SCH (10:09)
--- NOTE | 2019-04-19 10:46 | XRay Report ---
ABDOMINAL SERIES: History: Abdominal pain, small bowel obstruction on CT. Findings: AP view of the chest demonstrates moderate cardiomegaly and a tortuous aorta. The lungs are grossly clear. Supine and upright views of the abdomen demonstrate borderline to mildly dilated loops of small bowel with scattered small air-fluid levels. Gas is identified in the colon and rectum. The overall pattern is suggestive of a low-grade partial small bowel obstruction which is not significantly changed since the CT performed 04/18/19. Left nephrolithiasis is noted. IMPRESSION: Findings remain suggestive of a low-grade partial small bowel obstruction. See above. Cardiomegaly. Left nephrolithiasis.
--- NOTE | 2019-04-19 11:08 | Consultation ---
History of Present Illness Consult date: 04/19/19 Consult reason: known to you History of present illness: This is an 83-year old woman with a history of chronic hypertension and atrial flutter with prior ablation in 2010. Patient was previously determined a poor risk for oral anticoagulation due to severe vaginal bleeding. A month ago, she was hospitalized with syncope. At that time there were concerns about second degree Wenckebach AV block, right bundle branch block and left anterior fas cicular block. Echocardiogram showed well-preserved left ventricular systolic ejection fraction 55-60%, with moderate to severe dilatation of the left atrium. EP consultation was obtained to assess for possible pacemaker, but recommendation was for AV arti blockers to be discontinued and the patient to have a 30 day event monitor as outpatient. Patient is admitted with abdominal pain. Abdominal CT scan reports early small bowel obstruction, clolelithiasis and left renal calculi. She awaits surgical evaluation. Patient is an established patient with [facility] thus this cardiac consultation. Patient is sitting up in bed and appears comfortable. She denies chest pain, denies palpitations, denies dizziness and she denies unusual shortness of breath. There is no ECG available for review. Past History Past Medical History: atrial fib (s/p ablation), hypertension, hyperlipidemia, renal failure (ckd3), other (kidney stones, conduction system disease, glaucoma, overactive bladder) Social history: Lives alone Family history: no significant family history Medications and Allergies Allergies Allergy/AdvReac Type Severity Reaction Status Date / Time amiodarone Allergy Unknown Verified 03/27/19 04:48 carvedilol [From Coreg] Allergy Unknown Verified 03/27/19 04:47 Penicillins Allergy Unknown Verified 03/26/19 18:01 warfarin [From Coumadin] Allergy Unknown Verified 03/26/19 18:01 Home Medications Medication Instructions Recorded Confirmed Last Taken Type Ecotrin 81 mg PO QHS #30 07/16/16 04/19/19 03/26/19 Rx Omeprazole 40 mg PO DAILY #30 capsule. 07/16/16 04/19/19 03/26/19 Rx Potassium Chloride [K-Dur] 20 meq PO QDAY 03/03/19 04/19/19 03/26/19 History AtorvaSTATin [Lipitor] 20 mg PO QHS #30 tablet 03/29/19 04/19/19 Unknown Rx amLODIPine [Norvasc] 10 mg PO DAILY #30 tab 03/29/19 04/19/19 Unknown Rx Furosemide [Lasix TAB] 40 mg PO 3XW 04/14/19 04/19/19 Unknown History Myrbetriq 25 mg PO QHS 04/19/19 04/19/19 Unknown History Ursodiol [Liberty] 300 mg PO BID 04/19/19 04/19/19 Unknown History Valsartan [Diovan] 160 mg PO Q12HR 04/19/19 04/19/19 Unknown History Active Meds: Active Medications Acetaminophen (Tylenol) 650 mg PO Q4H PRN PRN Reason: Pain MILD(1-3)/Fever >100.5/BOWMAN Heparin Sodium (Porcine) (Heparin) 5,000 unit SUB-Q Q12HR [facility] Last Admin: 04/19/19 10:08 Dose: 5,000 unit Documented by: Sodium Chloride (Nacl 0.9% 1000 Ml) 1,000 mls @ 42 mls/hr IV DIRECT [facility] Last Admin: 04/18/19 23:41 Dose: 42 mls/hr Documented by: Ketorolac Tromethamine (Toradol) 15 mg IV Q6H PRN PRN Reason: Pain, Mild (1-3) Stop: 04/23/19 19:25 Last Admin: 04/18/19 19:50 Dose: 15 mg Documented by: Ondansetron HCl (Zofran) 4 mg IV Q8H PRN PRN Reason: Nausea And Vomiting Sodium Chloride (Sodium Chloride Flush Syringe 10 Ml) 10 ml IV BID [facility] Last Admin: 04/19/19 10:09 Dose: 10 ml Documented by: Sodium Chloride (Sodium Chloride Flush Syringe 10 Ml) 10 ml IV PRN PRN PRN Reason: LINE FLUSH Physical Examination Vital Signs Temp Pulse Resp BP Pulse Ox 98.5 F 87 18 144/95 100 04/18/19 12:44 04/18/19 12:44 04/18/19 12:44 04/18/19 12:44 04/18/19 12:44 General appearance: no acute distress HEENT: Positive: PERRL Cardiac: Positive: Reg Rate and Rhythm Lungs: Positive: Decreased Breath Sounds Neuro: Positive: Grossly Intact Extremities: Absent: edema Results 04/19/19 05:49 04/19/19 05:49 Cardiac Enzymes 04/18/19 Range/Units 13:14 AST 16 (5-40) units/L CBC 04/18/19 04/19/19 Range/Units 13:14 05:49 WBC 7.6 6.5 (4.5-11.0) K/mm3 RBC 4.76 4.32 (3.65-5.03) M/mm3 Hgb 13.4 12.1 (10.1-14.3) gm/dl Hct 40.6 36.3 (30.3-42.9) % Plt Count 155 130 L (140-440) K/mm3 Lymph # 1.2 1.9 (1.2-5.4) K/mm3 [place] # 0.8 0.8 (0.0-0.8) K/mm3 Eos # 0.0 0.1 (0.0-0.4) K/mm3 Baso # 0.0 0.1 (0.0-0.1) K/mm3 Comprehensive Metabolic Panel 04/18/19 04/19/19 Range/Units 13:14 05:49 Sodium 142 143 (137-145) mmol/L Potassium 4.3 4.2 (3.6-5.0) mmol/L Chloride 104.6 109.5 H (98-107) mmol/L Carbon Dioxide 24 22 (22-30) mmol/L BUN 21 H 19 H (7-17) mg/dL Creatinine 1.4 H 1.3 H (0.7-1.2) mg/dL Glucose 127 H 88 (65-100) mg/dL Calcium 9.6 8.0 L D (8.4-10.2) mg/dL AST 16 (5-40) units/L ALT 8 (7-56) units/L Alkaline Phosphatase 58 (35-129) units/L Total Protein 6.4 (6.3-8.2) g/dL Albumin 3.5 L (3.9-5) g/dL Assessment and Plan Abdominal pain Abdominal CT reports early small bowel obstruction. Cholelithiasis. Left renal calculi. 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 H/O Atrial flutter s/p ablation anticoagulation therapy previously discontinued for vaginal bleeding Left ventricular ejection fraction of 55% by echocardiogram 02/2019. Recommend: Avoid negative chronotropic or AV node blocking agents. 12 lead ECG. Remote telemetry monitoring.
--- NOTE | 2019-04-19 12:50 | Progress Note ---
Assessment and Plan Full consult dictated. 83 y/o female multitude of cardiac issues. Cholelithiasis. "early partial sbo" Abd 1+ distended. mild epig tenderness. rec NPO NG suction. mineral oil per ng f/u abd series in am will follow. Chief complaint: Abdominal pain History of present illness: 83-year-old -Chinese female with history of CKD3, hypertension, A. fib status post ablation who presents to [facility] ED with complaints of right upper quadrant abdominal pain. Patient states that for the past 2 days she has been experiencing diffuse abdominal pain. She describes the pain as achy and rates it 7/10. The pain is constant with periods of variation in intensity. She states that she has known "gallbladder issues" and is concerned that the pain is related to her gallbladder. She is present at beside and is also concerned about her mother's "gallbladder pain". Patient daughter is a nurse and works at [employer]. Patient lives alone and daughter is concerned about her mother's ability to self-care. Daughter would like assistance with home health care services. Denies: Constipation, n/v/d, diaphoresis, chest pain, fever, headache, melena, or hematochezia Review of chart shows that patient was admitted and treated for hypertensive urgency. She was seen in the ED on 04/14/19 with complaints of fish bone stuck in her hypopharynx. She was subsequently transferred to [facility] for removal of fish bone. Past History Past Medical History: atrial fib (s/p ablation), hypertension, hyperlipidemia, renal failure (ckd3), other (kidney stones, conduction system disease, glaucoma, overactive bladder) Past Surgical History: Other (ablation) Social history: Lives alone Family history: no significant family history Selected Entries 04/19/19 07:51 Temperature 97.4 F L Pulse Rate 75 Respiratory 20 Rate Blood Pressure 102/40 Laboratory Tests 04/19/19 04/19/19 05:49 05:49 WBC 6.5 Hgb 12.1 Hct 36.3 Sodium 143 Potassium 4.2 Chloride 109.5 H BUN 19 H Creatinine 1.3 H Objective Vital Signs - 12hr 04/19/19 04/19/19 02:00 07:51 Temperature 98.2 F 97.4 F L Pulse Rate 80 75 Respiratory 16 20 Rate Blood Pressure 113/50 102/40 O2 Sat by Pulse 90 95 Oximetry - Labs 04/19/19 05:49 04/19/19 05:49 Diabetes panel 04/18/19 04/19/19 Range/Units 13:14 05:49 Sodium 142 143 (137-145) mmol/L Potassium 4.3 4.2 (3.6-5.0) mmol/L Chloride 104.6 109.5 H (98-107) mmol/L Carbon Dioxide 24 22 (22-30) mmol/L BUN 21 H 19 H (7-17) mg/dL Creatinine 1.4 H 1.3 H (0.7-1.2) mg/dL Glucose 127 H 88 (65-100) mg/dL Calcium 9.6 8.0 L D (8.4-10.2) mg/dL AST 16 (5-40) units/L ALT 8 (7-56) units/L Alkaline Phosphatase 58 (35-129) units/L Total Protein 6.4 (6.3-8.2) g/dL Albumin 3.5 L (3.9-5) g/dL Calcium panel 04/18/19 04/19/19 Range/Units 13:14 05:49 Calcium 9.6 8.0 L D (8.4-10.2) mg/dL Albumin 3.5 L (3.9-5) g/dL Pituitary panel 04/18/19 04/19/19 Range/Units 13:14 05:49 Sodium 142 143 (137-145) mmol/L Potassium 4.3 4.2 (3.6-5.0) mmol/L Chloride 104.6 109.5 H (98-107) mmol/L Carbon Dioxide 24 22 (22-30) mmol/L BUN 21 H 19 H (7-17) mg/dL Creatinine 1.4 H 1.3 H (0.7-1.2) mg/dL Glucose 127 H 88 (65-100) mg/dL Calcium 9.6 8.0 L D (8.4-10.2) mg/dL Adrenal panel 04/18/19 04/19/19 Range/Units 13:14 05:49 Sodium 142 143 (137-145) mmol/L Potassium 4.3 4.2 (3.6-5.0) mmol/L Chloride 104.6 109.5 H (98-107) mmol/L Carbon Dioxide 24 22 (22-30) mmol/L BUN 21 H 19 H (7-17) mg/dL Creatinine 1.4 H 1.3 H (0.7-1.2) mg/dL Glucose 127 H 88 (65-100) mg/dL Calcium 9.6 8.0 L D (8.4-10.2) mg/dL Total Bilirubin 0.80 (0.1-1.2) mg/dL AST 16 (5-40) units/L ALT 8 (7-56) units/L Alkaline Phosphatase 58 (35-129) units/L Total Protein 6.4 (6.3-8.2) g/dL Albumin 3.5 L (3.9-5) g/dL
--- NOTE | 2019-04-19 13:28 | Progress Note ---
Assessment and Plan Assessment and plan: 83-year-old -Welsh female with history of CKD3, hypertension, A. fib status post ablation who presents to [facility] ED with complaints of right upper quadrant abdominal pain. Past History Past Medical History: atrial fib (s/p ablation), hypertension, hyperlipidemia, renal failure (ckd3), other (kidney stones, conduction system disease, glaucoma, overactive bladder) Biliary colic HIDA scan, GS consult, npo , pain meds Partial SBO npo, conservative mgt, mineral oil per ng, abd series in am, htn IV meds prn ckd stage 2 avoid nephrotoxins dvt ppx- lovenox History Interval history: Review of systems Constitutional: No fevers, no malaise, no joint pains CVS: No chest pain, no orthopnea, no dyspnea on exertion, no pedal edema GI: abdominal pain is mild to moderate in epigastrium, mildly improved Respiratory: no wheezing, no coughing Hospitalist Physical - Physical exam Narrative exam: General.: Appears well, no distress, nontoxic HEENT: Moist mucous membranes, extraocular muscles intact, no lymphadenopathy Neck: supple Cardiac: S1-S2 heard Lungs: clear to auscultation bilaterally Abdomen: soft , tender in epigastrium Extremities: no edema clubbing or cyanosis Skin: no rash or lesions Neurologic: no gross focal deficits Psych: calm, and cooperative - Constitutional Vitals: Temp Pulse Resp BP Pulse Ox 97.4 F L 75 20 102/40 95 04/19/19 07:51 04/19/19 07:51 04/19/19 07:51 04/19/19 07:51 04/19/19 07:51 General appearance: Present: no acute distress Results - Labs CBC & Chem 7: 04/19/19 05:49 04/19/19 05:49 Labs: Laboratory Last Values WBC 6.5 K/mm3 (4.5-11.0) 04/19/19 05:49 RBC 4.32 M/mm3 (3.65-5.03) 04/19/19 05:49 Hgb 12.1 gm/dl (10.1-14.3) 04/19/19 05:49 Hct 36.3 % (30.3-42.9) 04/19/19 05:49 MCV 84 fl (79-97) 04/19/19 05:49 MCH 28 pg (28-32) 04/19/19 05:49 MCHC 33 % (30-34) 04/19/19 05:49 RDW 14.9 % (13.2-15.2) 04/19/19 05:49 Plt Count 130 K/mm3 (140-440) L 04/19/19 05:49 Lymph % (Auto) 29.0 % (13.4-35.0) 04/19/19 05:49 Bullock % (Auto) 12.7 % (0.0-7.3) H 04/19/19 05:49 Eos % (Auto) 1.5 % (0.0-4.3) 04/19/19 05:49 Baso % (Auto) 0.9 % (0.0-1.8) 04/19/19 05:49 Lymph # 1.9 K/mm3 (1.2-5.4) 04/19/19 05:49 Bullock # 0.8 K/mm3 (0.0-0.8) 04/19/19 05:49 Eos # 0.1 K/mm3 (0.0-0.4) 04/19/19 05:49 Baso # 0.1 K/mm3 (0.0-0.1) 04/19/19 05:49 Seg Neutrophils % 55.9 % (40.0-70.0) 04/19/19 05:49 Seg Neutrophils # 3.6 K/mm3 (1.8-7.7) 04/19/19 05:49 Sodium 143 mmol/L (137-145) 04/19/19 05:49 Potassium 4.2 mmol/L (3.6-5.0) 04/19/19 05:49 Chloride 109.5 mmol/L (98-107) H 04/19/19 05:49 Carbon Dioxide 22 mmol/L (22-30) 04/19/19 05:49 16 mmol/L 04/19/19 05:49 BUN 19 mg/dL (7-17) H 04/19/19 05:49 1.3 mg/dL (0.7-1.2) H 04/19/19 05:49 Estimated GFR 47 ml/min 04/19/19 05:49 15 % 04/19/19 05:49 Glucose 88 mg/dL (65-100) 04/19/19 05:49 Calcium 8.0 mg/dL (8.4-10.2) L D 04/19/19 05:49 0.80 mg/dL (0.1-1.2) 04/18/19 13:14 AST 16 units/L (5-40) 04/18/19 13:14 ALT 8 units/L (7-56) 04/18/19 13:14 58 units/L (35-129) 04/18/19 13:14 6.4 g/dL (6.3-8.2) 04/18/19 13:14 3.5 g/dL (3.9-5) L 04/18/19 13:14 1.2 % 04/18/19 13:14 12 units/L (13-60) L 04/18/19 13:14 Yellow (Yellow) 04/18/19 18:44 Cloudy (Clear) 04/18/19 18:44 5.0 (5.0-7.0) 04/18/19 18:44 Ur Specific [place] 1.021 (1.003-1.030) 04/18/19 18:44 <15 mg/dl mg/dL (Negative) 04/18/19 18:44 Neg mg/dL (Negative) 04/18/19 18:44 Neg mg/dL (Negative) 04/18/19 18:44 Neg (Negative) 04/18/19 18:44 Neg (Negative) 04/18/19 18:44 Neg (Negative) 04/18/19 18:44 4.0 mg/dL (<2.0) 04/18/19 18:44 Ur Leukocyte Esterase Neg (Negative) 04/18/19 18:44 < 1.0 /HPF (0.0-6.0) 04/18/19 18:44 1.0 /HPF (0.0-6.0) 04/18/19 18:44 U Epithel Cells (Auto) 1.0 /HPF (0-13.0) 04/18/19 18:44 Few /HPF 04/18/19 18:44 Active Medications - Current Medications Current Medications: Generic Name Dose Route Start Last Admin Trade Name Freq PRN Reason Stop Dose Admin Acetaminophen 650 mg 04/18/19 19:39 Tylenol PO Q4H PRN Pain MILD(1-3)/Fever >100.5/BOWMAN Famotidine 20 mg 04/19/19 22:00 Pepcid IV DAILY BHAKTI Heparin Sodium (Porcine) 5,000 unit 04/18/19 22:00 04/19/19 10:08 Heparin SUB-Q 5,000 unit Q12HR BHAKTI Administration Sodium Chloride 1,000 mls @ 42 mls/hr 04/18/19 21:00 04/18/19 23:41 Nacl 0.9% 1000 Ml IV 42 mls/hr DIRECT BHAKTI Administration Ketorolac Tromethamine 15 mg 04/18/19 19:26 04/18/19 19:50 Toradol IV 04/23/19 19:25 15 mg Q6H PRN Administration Pain, Mild (1-3) Ondansetron HCl 4 mg 04/18/19 19:39 Zofran IV Q8H PRN Nausea And Vomiting Sodium Chloride 10 ml 04/18/19 22:00 04/19/19 10:09 Sodium Chloride Flush Syringe 10 Ml IV 10 ml BID BHAKTI Administration Sodium Chloride 10 ml 04/18/19 19:39 Sodium Chloride Flush Syringe 10 Ml IV PRN PRN LINE FLUSH
[2019-04-19] MEDS ORDERED: APRESOLINE IV PRN (13:36)
[2019-04-19] MEDS ORDERED: ATIVAN IV ONE (13:38)
[2019-04-19] MEDS: SODIUM CHLORIDE FLUSH SYRINGE 10 ML IV PRN (17:14)
--- NOTE | 2019-04-19 17:35 | Nuclear Medicine Report ---
PROCEDURE: NM HEPATOBILIARY W CCK TECHNIQUE: Gamma camera images of the upper abdomen, including the hepatobiliary ductal system and g allbladder, were obtained after the IV injection of 5.0 mCi Tc-99m Choletec. Quantitative measurement of gallbladder function was obtained after the 60 minute IV infusion of 0.02ug/kg of cholecystokinin . HISTORY: abdominal pain COMPARISONS: No relevant imaging study of the anatomical region(s) in question is available, or known to exist, for comparison . FINDINGS: Patient was initially distributed throughout the liver as expected. Gallbladder first visualized at 2 0 minutes. Images obtained at 60 minutes show isotope in the gallbladder and common bile duct. The sm all bowel is never visualized. No definite leakage is seen. After administering cholecystokinin the e jection fraction is calculated at 14%. Small bowel is only faintly visualized. IMPRESSION: No evidence for obstruction of the cystic duct. There is only minimal visualization of small bowel on ly after cholecystokinin was administered. Ejection fraction significantly decreased consistent with gallbladder dysfunction. Stricture or partial obstruction of the distal common bile duct not entirely excluded. This document is electronically signed by Og Mathias MD., April 19 2019 05:33:45 PM ET
[2019-04-20] MEDS: MINERAL OIL FEEDTUBE SCH ×7 (00:07→22:53)
[2019-04-20] MEDS: HEPARIN SUB-Q SCH ×3 (00:07→22:53)
[2019-04-20] MEDS: PEPCID IV SCH ×2 (00:07→11:21)
[2019-04-20] MEDS: SODIUM CHLORIDE FLUSH SYRINGE 10 ML IV SCH ×3 (00:12→22:54)
--- NOTE | 2019-04-20 00:19 | Consultation ---
REASON FOR CONSULTATION: Rule out " HISTORY OF PRESENT ILLNESS: The patient is an 83-year-old female seemed slightly disoriented, who was admitted to the hospital with a chief complaint of epigastric abdominal pain. Denied any nausea or vomiting and states she has been " PAST MEDICAL HISTORY: Pertinent for " This patient is known to have gallstones, but was currently undergoing a cardiac workup for possible surgical clearance. The patient appears to have a multitude of cardiac problems including atrial fibrillation and other cardiac issues. It has also been recommended that she possibly would benefit from a pacemaker, but again this is all being evaluated prior to her admission. PAST SURGICAL HISTORY: Status post hysterectomy. The patient states she also had a unilateral oophorectomy, but does not know which ovary was removed. Also umbilical hernia repair. ALLERGIES: The patient is allergic to PENICILLIN AND POSSIBLY OTHER MEDICATIONS WHICH SHE DOES NOT RECALL. CURRENT MEDICATIONS: On chart. FAMILY HISTORY: Denies any family history. SOCIAL HISTORY: Denies any smoking or drinking. States she quit smoking approximately 30 years ago. PHYSICAL EXAMINATION: GENERAL: At this time reveals the patient to be feeling comfortable. VITAL SIGNS: Show her to be afebrile with a temperature 97.4, blood pressure 102/40, pulse is 75, respirations 20. ABDOMEN: Examination of the abdomen reveals it to be 1+ distended. There is epigastric tenderness on palpation, but no rebound or guarding. Bowel sounds are present. LABORATORY DATA: Lab work at present includes a CBC, which shows a white count 6.5, H and H is 12 and 36. Electrolytes are essentially within normal limits including a potassium of 4.2. LFTs were also within normal limits. Lipase is normal at 12. A CT scan of the abdomen has been performed, which I have reviewed with the radiologist. There are some nonspecific dilated proximal bowel loops consistent with a possible early small-bowel obstruction. Gallstones were also confirmed as the patient is already aware of this from a previous workup. IMPRESSION: 1. At this time is that of an 83-year-old female with multitude of medical and cardiac problems. 2. Cholelithiasis, but no evidence of cholecystitis. 3. Possible nonspecific early small-bowel obstruction. RECOMMENDATIONS: At this time is to keep the patient n.p.o. and begin NG suction. We will also begin inserting mineral oil through the NG tube. We will monitor her clinically and follow up with an abdominal series in the morning. Thank you very much for consultation. JOB# [id number] YASIR/LISA
[2019-04-20] MEDS: NACL 0.9% 1000 ML 1,000 ML IV SCH (02:59)
--- NOTE | 2019-04-20 09:12 | XRay Report ---
ABDOMINAL SERIES: History: Follow up small bowel obstruction. A nasogastric tube has been inserted which terminates in the fundus of the stomach. Borderline to mildly dilated loops of small bowel with air-fluid levels have decreased slightly. Normal stool and gas in the colon. Single view of the chest demonstrates moderate cardiomegaly and tortuous aorta. The lungs are clear. Left nephrolithiasis is again noted and unchanged. IMPRESSION: Mild improvement in the partial small bowel obstruction pattern since nasogastric tube placement.
--- NOTE | 2019-04-20 10:27 | Progress Note ---
Assessment and Plan Abdominal pain Abdominal CT reports early small bowel obstruction. Cholelithiasis. Left renal calculi. 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 H/O Atrial flutter s/p ablation anticoagulation therapy previously discontinued for vaginal bleeding Left ventricular ejection fraction of 55% by echocardiogram 02/2019. Recommend: Avoid negative chronotropic or AV node blocking agents. 12 lead ECG pending for review. Otherwise, conservative cardiac management. Subjective Date of service: 04/20/19 Interval history: Patient is resting in bed comfortably. She has no cardiac complaints. Objective Vital Signs Temp Pulse Resp BP BP Pulse Ox 04/20/19 07:59 98.4 F 82 18 118/50 98 04/20/19 02:50 98.7 F 20 121/68 04/20/19 02:00 98.7 F 84 20 121/68 96 04/19/19 21:07 98.4 F 78 20 107/54 97 - Physical Examination General: No Apparent Distress HEENT: Positive: PERRL Cardiac: Positive: Reg Rate and Rhythm Lungs: Positive: Decreased Breath Sounds Neuro: Positive: Grossly Intact Extremities: Absent: edema
[2019-04-20 12:16] LABS: Hematocrit 40.5 % (30.3-42.9); Hemoglobin 13.2 gm/dl (10.1-14.3); Mean Corpuscular HGB Conc 33 % (30-34); Mean Corpuscular Volume 84 fl (79-97); Platelet Count 142 K/mm3 (140-440)
--- NOTE | 2019-04-20 12:18 | Progress Note ---
Assessment and Plan Pt feeling better this am. Had originally refused NG tube insertion. but eventually family was spoken to and she agree in PM has passed flatus this am Abd - less distended. non tender at present. hypoactive BS Abd series improved surgically stable - improving. continue ng suction and mineral oil Rx OOB and ambulate as marisol repeat abd series in am Selected Entries 04/20/19 07:59 Temperature 98.4 F Pulse Rate 82 Respiratory 18 Rate Blood Pressure 118/50 Objective Vital Signs - 12hr 04/20/19 04/20/19 04/20/19 02:00 02:50 07:59 Temperature 98.7 F 98.7 F 98.4 F Pulse Rate 84 82 Respiratory 20 20 18 Rate Blood Pressure 121/68 118/50 Blood Pressure 121/68 [Left] O2 Sat by Pulse 96 98 Oximetry - Labs 04/19/19 05:49 04/19/19 05:49
[2019-04-20 12:35] LABS: BUN/Creatinine Ratio 12; Blood Urea Nitrogen 12 mg/dL (7-17); Calcium 8.9 mg/dL (8.4-10.2); Hemolysis Index 29
[2019-04-20] MEDS: TORADOL IV PRN (13:11)
[2019-04-20] MEDS: SODIUM CHLORIDE FLUSH SYRINGE 10 ML IV PRN (13:12)
--- NOTE | 2019-04-20 14:07 | Progress Note ---
Assessment and Plan /Biliary colic HIDA scan ordered, GS consulted, keep npo , as needed iv pain meds /Partial SBO npo for now, conservative mgt per GS, mineral oil per ng, abd series in am, follow BMP, abdominal xry showed mild improvement /htn IV meds prn SBP >160 /KO on possible ckd stage 2, POA likely vasomotor nephropathy, cont iv fluid, avoid nephrotoxins /dvt ppx- lovenox Brief History: 83-year-old -[place]i female with history of CKD3, hypertension, A. fib status post ablation who presents to [facility] ED with complaints of right upper quadrant abdominal pain. Radiological data: Chest abdomen x-ray Abdomen ultrasound Abdomen/pelvic CT HIDA scan Hospitalist Physical exam: GENERAL: well-developed obese elderly AAF lying on bed appeared to be in no discomfort. HEENT: Normocephalic. Atraumatic. No conjunctival congestion or icterus. Patient has moist mucous membranes. NECK: Supple. Trachea midline. CHEST/LUNGS: Clear to auscultated bilaterally, breathing nonlabored. No wheezes crackles or rhonchi. HEART/CARDIOVASCULAR: Regular in rate and rhythm. S1 and S2 positive. ABDOMEN: Abdomen is soft, nontender, obese. Patient has hypoactive bowel sounds. SKIN: There is no rash. Warm and dry. NEURO: No focal motor deficit. Follows command. MUSCULOSKELETAL: No joint effusion EXTRIMITY: No edema, no cyanosis or clubbing. PSYCH: Cooperative. Subjective Date of service: 04/20/19 Interval history: Patient seen and examined. Medical records and medication list reviewed. No acute event overnight noted by the RN. Patient denies any chest pain or difficulty breathing. Patient remained on NG suction. Not passing any flatus or had no BM yet Discussed plan of care at bedside with patient. Objective - Constitutional Vitals: Vital Signs - 12hr 04/20/19 04/20/19 02:50 07:59 Temperature 98.7 F 98.4 F Pulse Rate 82 Respiratory 20 18 Rate Blood Pressure 121/68 118/50 O2 Sat by Pulse 98 Oximetry - Labs CBC & Chem 7: 04/20/19 11:41 04/20/19 11:41 Labs: Abnormal lab results 04/20/19 Range/Units 11:41 WBC 3.8 L (4.5-11.0) K/mm3 MCH 27 L (28-32) pg
[2019-04-20] MEDS: CHLORASEPTIC MM PRN ×2 (17:02→22:54)
[2019-04-21] MEDS: NACL 0.9% 1000 ML 1,000 ML IV SCH (02:43)
[2019-04-21] MEDS: MINERAL OIL FEEDTUBE SCH ×5 (02:43→18:10)
[2019-04-21] MEDS: HEPARIN SUB-Q SCH ×2 (09:42→23:19)
[2019-04-21] MEDS: PEPCID IV SCH (09:43)
[2019-04-21] MEDS: SODIUM CHLORIDE FLUSH SYRINGE 10 ML IV SCH (09:49)
--- NOTE | 2019-04-21 10:13 | Progress Note ---
<ZAC TREJO - Last Filed: 04/21/19 10:13> Assessment and Plan Abdominal pain Abdominal CT reports early small bowel obstruction. Cholelithiasis. Left renal calculi. 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 H/O Atrial flutter s/p ablation anticoagulation therapy previously discontinued for vaginal bleeding Left ventricular ejection fraction of 55% by echocardiogram 02/2019. Recommend: Avoid negative chronotropic or AV node blocking agents. Otherwise, conservative cardiac management. Subjective Date of service: 04/21/19 Interval history: Patient is resting in bed comfortably. She has no cardiac complaints. Objective Vital Signs Temp Pulse Resp Resp BP Pulse Ox 04/21/19 08:51 20 96 04/21/19 07:48 98.2 F 69 20 145/74 96 04/21/19 02:20 98.0 F 80 18 140/77 95 04/20/19 22:00 20 20 98 04/20/19 19:28 98.0 F 75 18 123/71 98 04/20/19 13:45 98.8 F 84 20 129/74 98 - Physical Examination General: No Apparent Distress HEENT: Positive: PERRL Cardiac: Positive: Reg Rate and Rhythm Lungs: Positive: Decreased Breath Sounds Neuro: Positive: Grossly Intact Extremities: Absent: edema - Labs and Meds CBC 04/20/19 Range/Units 11:41 WBC 3.8 L (4.5-11.0) K/mm3 RBC 4.80 (3.65-5.03) M/mm3 Hgb 13.2 (10.1-14.3) gm/dl Hct 40.5 (30.3-42.9) % Plt Count 142 (140-440) K/mm3 Comprehensive Metabolic Panel 04/20/19 Range/Units 11:41 Sodium 143 (137-145) mmol/L Potassium 4.0 (3.6-5.0) mmol/L Chloride 103.3 (98-107) mmol/L Carbon Dioxide 26 (22-30) mmol/L BUN 12 (7-17) mg/dL Creatinine 1.0 (0.7-1.2) mg/dL Glucose 71 (65-100) mg/dL Calcium 8.9 (8.4-10.2) mg/dL <JOAN GARCIA - Last Filed: 04/21/19 13:14> Assessment and Plan I've seen and evaluated the patient and agree with the assessment and plan. The patient presents with abdominal pain, hypertension and a history of atrial flutter status post ablation. No further cardiac recommendations at this time. Objective Vital Signs Temp Pulse Resp Resp BP Pulse Ox 04/21/19 10:00 20 04/21/19 08:51 20 96 04/21/19 07:48 98.2 F 69 20 145/74 96 04/21/19 02:20 98.0 F 80 18 140/77 95 04/20/19 22:00 20 20 98 04/20/19 19:28 98.0 F 75 18 123/71 98 04/20/19 13:45 98.8 F 84 20 129/74 98
--- NOTE | 2019-04-21 10:59 | XRay Report ---
ABDOMINAL SERIES: History: Follow up small bowel obstruction. Compared to 04/20/19 at 0818 hours. There are 1 or 2 mildly dilated loops of small bowel in the right abdomen. Normal gas and stool in the colon. The nasogastric tube remains in similar position terminating in the proximal stomach. No change is demonstrated since yesterday's exam. Single view of the chest is unchanged demonstrating cardiomegaly and tortuous aorta. IMPRESSION: No change.
--- NOTE | 2019-04-21 11:08 | Progress Note ---
Assessment and Plan Pt feeling well. Abd non tender. Abd series - non specific small bowel gas pattern. neg AFL surgically stable continue ng suction x 24 more hrs SBFT study in am Selected Entries 04/21/19 04/21/19 07:48 10:00 Temperature 98.2 F Pulse Rate 69 Respiratory 20 Rate [Abdomen] Blood Pressure 145/74 Laboratory Tests 04/20/19 04/20/19 11:41 11:41 WBC 3.8 L Hgb 13.2 Hct 40.5 Potassium 4.0 Objective Vital Signs - 12hr 04/21/19 04/21/19 04/21/19 02:20 07:48 08:51 Temperature 98.0 F 98.2 F Pulse Rate 80 69 Respiratory 18 20 20 Rate Respiratory Rate [Abdomen] Blood Pressure 140/77 145/74 O2 Sat by Pulse 95 96 96 Oximetry 04/21/19 10:00 Temperature Pulse Rate Respiratory Rate Respiratory 20 Rate [Abdomen] Blood Pressure O2 Sat by Pulse Oximetry - Labs 04/20/19 11:41 04/20/19 11:41 Diabetes panel 04/20/19 Range/Units 11:41 Sodium 143 (137-145) mmol/L Potassium 4.0 (3.6-5.0) mmol/L Chloride 103.3 (98-107) mmol/L Carbon Dioxide 26 (22-30) mmol/L BUN 12 (7-17) mg/dL Creatinine 1.0 (0.7-1.2) mg/dL Glucose 71 (65-100) mg/dL Calcium 8.9 (8.4-10.2) mg/dL Calcium panel 04/20/19 Range/Units 11:41 Calcium 8.9 (8.4-10.2) mg/dL Pituitary panel 04/20/19 Range/Units 11:41 Sodium 143 (137-145) mmol/L Potassium 4.0 (3.6-5.0) mmol/L Chloride 103.3 (98-107) mmol/L Carbon Dioxide 26 (22-30) mmol/L BUN 12 (7-17) mg/dL Creatinine 1.0 (0.7-1.2) mg/dL Glucose 71 (65-100) mg/dL Calcium 8.9 (8.4-10.2) mg/dL Adrenal panel 04/20/19 Range/Units 11:41 Sodium 143 (137-145) mmol/L Potassium 4.0 (3.6-5.0) mmol/L Chloride 103.3 (98-107) mmol/L Carbon Dioxide 26 (22-30) mmol/L BUN 12 (7-17) mg/dL Creatinine 1.0 (0.7-1.2) mg/dL Glucose 71 (65-100) mg/dL Calcium 8.9 (8.4-10.2) mg/dL
[2019-04-21] MEDS: CHLORASEPTIC MM PRN ×2 (12:24→20:17)
--- NOTE | 2019-04-21 15:16 | Progress Note ---
Assessment and Plan /Partial SBO npo for now, conservative mgt per GS, follow BMP, abdominal xry showed mild improvement Abd series - non specific small bowel gas pattern. neg AFL continue ng suction x 24 more hrs SBFT study in am /Acute Biliary colic HIDA scan showed no cystic duct obstruction, possible Ejection fraction significantly decreased consistent with gallbladder dysfunction, Stricture or partial obstruction of the distal common bile duct not entirely excluded. will do GI consult when patient clinically more stable Monitor LFT /HTN IV meds prn SBP >160 /KO on possible ckd stage 2, POA likely vasomotor nephropathy, cont iv fluid, avoid nephrotoxins /H/o atrial fib s/p ablation, NSR now, cont to monitor - not on AC for h/o vaginal bleeding /h/o Conduction system disease with first degree AV block, and intermittent second degree type I AV block. - continue to avoid BB, cardiology following /dvt ppx- lovenox Brief History: 83-year-old -[place] female with history of CKD, hypertension, A. fib s tatus post ablation who presents to [facility] ED with complaints of right upper quadrant abdominal pain. Radiological data: Chest/abdomen x-ray Abdomen ultrasound Abdomen/pelvic CT HIDA scan Hospitalist Physical exam: GENERAL: well-developed obese elderly AAF lying on bed appeared to be in no discomfort. HEENT: Normocephalic. Atraumatic. No conjunctival congestion or icterus. Patient has moist mucous membranes. NECK: Supple. Trachea midline. CHEST/LUNGS: Clear to auscultated bilaterally, breathing nonlabored. No wheezes crackles or rhonchi. HEART/CARDIOVASCULAR: Regular in rate and rhythm. S1 and S2 positive. ABDOMEN: Abdomen is soft, nontender, obese. Patient has hypoactive bowel sounds. SKIN: There is no rash. Warm and dry. NEURO: No focal motor deficit. Follows command. MUSCULOSKELETAL: No joint effusion EXTRIMITY: No edema, no cyanosis or clubbing. PSYCH: Cooperative. Subjective Date of service: 04/21/19 Interval history: Patient seen and examined. Medical records and medication list reviewed. No acute event overnight noted by the RN. Patient denies any chest pain or difficulty breathing. Patient remained on NG suction. Not passing any flatus or had no BM yet, but abdominal pain better Discussed plan of care at bedside with patient. Objective - Constitutional Vitals: Vital Signs - 12hr 04/21/19 04/21/19 04/21/19 07:48 08:51 09:50 Temperature 98.2 F Pulse Rate 69 85 Respiratory 20 20 20 Rate Respiratory Rate [Abdomen] Blood Pressure 145/74 132/82 O2 Sat by Pulse 96 96 93 Oximetry 04/21/19 04/21/19 10:00 13:02 Temperature 98.1 F Pulse Rate 84 Respiratory 20 Rate Respiratory 20 Rate [Abdomen] Blood Pressure 125/77 O2 Sat by Pulse 96 Oximetry - Labs CBC & Chem 7: 04/20/19 11:41 04/20/19 11:41
--- NOTE | 2019-04-22 08:26 | Progress Note ---
Assessment and Plan Abdominal pain Abdominal CT reports early small bowel obstruction. Cholelithiasis. Left renal calculi. 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 H/O Atrial flutter s/p ablation anticoagulation therapy previously discontinued for vaginal bleeding Left ventricular ejection fraction of 55% by echocardiogram 02/2019. Recommend: Avoid negative chronotropic or AV node blocking agents. Otherwise, conservative cardiac management. Subjective Date of service: 04/22/19 Interval history: Patient is resting in bed comfortably. She has no chest pain or shortness of breath. Objective Vital Signs Temp Pulse Resp Resp BP Pulse Ox 04/22/19 07:21 98.9 F 81 20 148/93 96 04/22/19 02:42 122.0 F H 72 18 130/70 91 04/21/19 19:14 99.6 F 85 20 142/86 95 04/21/19 13:02 98.1 F 84 20 125/77 96 04/21/19 10:00 20 04/21/19 09:50 85 20 132/82 93 04/21/19 08:51 20 96 - Physical Examination General: No Apparent Distress HEENT: Positive: PERRL Cardiac: Positive: Reg Rate and Rhythm Lungs: Positive: Decreased Breath Sounds Neuro: Positive: Grossly Intact Extremities: Absent: edema
[2019-04-22] MEDS: PEPCID IV SCH ×2 (09:35→21:56)
[2019-04-22] MEDS: HEPARIN SUB-Q SCH ×2 (09:37→21:56)
[2019-04-22] MEDS: MINERAL OIL FEEDTUBE SCH ×3 (09:55→18:17)
[2019-04-22] MEDS: SODIUM CHLORIDE FLUSH SYRINGE 10 ML IV SCH ×2 (10:59→21:57)
--- NOTE | 2019-04-22 11:51 | Fluoroscopy Report ---
SMALL BOWEL SERIES: History: Abdominal pain, partial small bowel obstruction. Findings: Previous abdominal series and CT abdomen pelvis were reviewed. Transit time of the oral contrast through the small bowel loops is within normal limits at 45 minutes. There are a few mildly prominent mid small bowel loops in the lower abdomen as noted on previous exams. The ileum is decompressed and unremarkable. No cecal filling defect is identified. IMPRESSION: Essentially normal study. Transit time of contrast through the small bowel loops is within normal limits at 45 minutes.
--- NOTE | 2019-04-22 12:43 | Progress Note ---
Assessment and Plan 83 yo F with SBO SBFT - unremarkable Plan: 1. DC NGT 2. start full liquid diet -> adv as marisol to soft diet 3. OOB/ambulate 4. may be discharged if marisol soft diet. Patient instructed to stay on a soft diet at home for several days Thank you, please call with questions. Subjective Date of service: 04/22/19 Narrative: Pt seen and examined. No complaints. No n/v. + BM x2. No f/c. Objective Vital Signs - 12hr 04/22/19 04/22/19 02:42 07:21 Temperature 122.0 F H 98.9 F Pulse Rate 72 81 Respiratory 18 20 Rate Blood Pressure 130/70 148/93 O2 Sat by Pulse 91 96 Oximetry - General physical appearance Narrative Exam: Gen: AAOx3. NAD ENT: NGT clamped CV: s1, S2 Resp: even and unlabored Abd: soft, NT, ND Ext: no c/c/e - Labs 04/20/19 11:41 04/20/19 11:41
[2019-04-22 13:27] LABS: BUN/Creatinine Ratio 13; Blood Urea Nitrogen 13 mg/dL (7-17); Calcium 8.8 mg/dL (8.4-10.2); Hemolysis Index 8
--- NOTE | 2019-04-22 15:04 | Progress Note ---
Assessment and Plan /Partial SBO npo for now, conservative mgt per GS, follow BMP, abdominal xry showed mild improvement Abd series - non specific small bowel gas pattern. neg AFL s/p NG suction start full liquid diet -> adv as marisol to soft diet /Acute Biliary colic HIDA scan showed no cystic duct obstruction, possible Ejection fraction significantly decreased consistent with gallbladder dysfunction, Stricture or partial obstruction of the distal common bile duct not entirely excluded. 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 - continue to avoid BB, cardiology following /dvt ppx- [facility] Brief History: 83-year-old -[place] female with history of CKD, hypertension, A. fib status post ablation who presents to [facility] ED with complaints of right upper quadrant abdominal pain. Radiological data: Chest/abdomen x-ray Abdomen ultrasound Abdomen/pelvic CT HIDA scan Hospitalist Physical exam: GENERAL: well-developed obese elderly AAF lying on bed appeared to be in no discomfort. HEENT: Normocephalic. Atraumatic. No conjunctival congestion or icterus. Patient has moist mucous membranes. NECK: Supple. Trachea midline. CHEST/LUNGS: Clear to auscultated bilaterally, breathing nonlabored. No wheezes crackles or rhonchi. HEART/CARDIOVASCULAR: Regular in rate and rhythm. S1 and S2 positive. ABDOMEN: Abdomen is soft, nontender, obese. Patient has hypoactive bowel sounds. SKIN: There is no rash. Warm and dry. NEURO: No focal motor deficit. Follows command. MUSCULOSKELETAL: No joint effusion EXTRIMITY: No edema, no cyanosis or clubbing. PSYCH: Cooperative. Subjective Date of service: 04/22/19 Interval history: Patient seen and examined. Medical records and medication list reviewed. No acute event overnight noted by the RN. Patient denies any chest pain or difficulty breathing. Patient off NG suction. passing flatus and had BM , abdominal pain better Discussed plan of care at bedside with patient. Objective - Constitutional Vitals: Vital Signs - 12hr 04/22/19 04/22/19 04/22/19 07:21 08:00 10:00 Temperature 98.9 F Pulse Rate 81 Respiratory 20 20 Rate Respiratory 20 Rate [Abdomen] Blood Pressure 148/93 O2 Sat by Pulse 96 96 Oximetry 04/22/19 13:17 Temperature 98.7 F Pulse Rate 86 Respiratory 20 Rate Respiratory Rate [Abdomen] Blood Pressure 120/83 O2 Sat by Pulse 95 Oximetry - Labs CBC & Chem 7: 04/20/19 11:41 04/22/19 12:34 Labs: Abnormal lab results 04/22/19 Range/Units 12:34 Potassium 3.5 L (3.6-5.0) mmol/L
[2019-04-23] MEDS: NACL 0.9% 1000 ML 1,000 ML IV SCH (04:02)
--- NOTE | 2019-04-23 09:11 | Progress Note ---
Assessment and Plan Abdominal pain Abdominal CT reports early small bowel obstruction. Cholelithiasis. Left renal calculi. 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 H/O Atrial flutter s/p ablation anticoagulation therapy previously discontinued for vaginal bleeding Left ventricular ejection fraction of 55% by echocardiogram 02/2019. Recommend: Avoid negative chronotropic or AV node blocking agents. Otherwise, conservative cardiac management. Subjective Date of service: 04/23/19 Interval history: Patient has no chest pain or shortness of breath. Objective Vital Signs Temp Pulse Pulse Resp Resp BP Pulse Ox 04/23/19 07:47 18 96 04/23/19 07:12 98.0 F 68 20 112/77 94 04/23/19 02:16 98.0 F 71 20 124/46 97 04/22/19 20:00 72 18 95 04/22/19 19:38 98.5 F 72 18 143/64 95 04/22/19 13:17 98.7 F 86 20 120/83 95 04/22/19 10:00 20 - Physical Examination General: No Apparent Distress HEENT: Positive: PERRL Neck: Positive: trachea midline Cardiac: Positive: Reg Rate and Rhythm Lungs: Positive: Decreased Breath Sounds Neuro: Positive: Grossly Intact Extremities: Absent: edema - Labs and Meds Comprehensive Metabolic Panel 04/22/19 Range/Units 12:34 Sodium 142 (137-145) mmol/L Potassium 3.5 L (3.6-5.0) mmol/L Chloride 99.5 (98-107) mmol/L Carbon Dioxide 25 (22-30) mmol/L BUN 13 (7-17) mg/dL Creatinine 1.0 (0.7-1.2) mg/dL Glucose 75 (65-100) mg/dL Calcium 8.8 (8.4-10.2) mg/dL
[2019-04-23] MEDS: SODIUM CHLORIDE FLUSH SYRINGE 10 ML IV SCH (10:03)
[2019-04-23] MEDS: HEPARIN SUB-Q SCH (10:03)
[2019-04-23] MEDS: PEPCID IV SCH (10:03)
--- NOTE | 2019-04-23 12:35 | Progress Note ---
Assessment and Plan 83 yo F with SBO SBFT - unremarkable Plan: 1. soft diet 2. OOB/ambulate 3. ok to dc from surgery standpoint Thank you, please call with questions. Subjective Date of service: 04/23/19 Narrative: Pt seen and examined. Feels well. Tolerating reg diet. Had multiple BMs y esterday. No abdominal pain ,n/v, f/c Objective Vital Signs - 12hr 04/23/19 04/23/19 04/23/19 02:16 07:12 07:47 Temperature 98.0 F 98.0 F Pulse Rate 71 68 Respiratory 20 20 18 Rate Blood Pressure 124/46 112/77 O2 Sat by Pulse 97 94 96 Oximetry - General physical appearance Narrative Exam: Gen: AAOx3. NAD CV: s1, S2+ resp; even and unlabored Abd: soft, NT, ND Ext: no c/c/e - Labs 04/20/19 11:41 04/22/19 12:34 Diabetes panel 04/22/19 Range/Units 12:34 Sodium 142 (137-145) mmol/L Potassium 3.5 L (3.6-5.0) mmol/L Chloride 99.5 (98-107) mmol/L Carbon Dioxide 25 (22-30) mmol/L BUN 13 (7-17) mg/dL Creatinine 1.0 (0.7-1.2) mg/dL Glucose 75 (65-100) mg/dL Calcium 8.8 (8.4-10.2) mg/dL Calcium panel 04/22/19 Range/Units 12:34 Calcium 8.8 (8.4-10.2) mg/dL Pituitary panel 04/22/19 Range/Units 12:34 Sodium 142 (137-145) mmol/L Potassium 3.5 L (3.6-5.0) mmol/L Chloride 99.5 (98-107) mmol/L Carbon Dioxide 25 (22-30) mmol/L BUN 13 (7-17) mg/dL Creatinine 1.0 (0.7-1.2) mg/dL Glucose 75 (65-100) mg/dL Calcium 8.8 (8.4-10.2) mg/dL Adrenal panel 04/22/19 Range/Units 12:34 Sodium 142 (137-145) mmol/L Potassium 3.5 L (3.6-5.0) mmol/L Chloride 99.5 (98-107) mmol/L Carbon Dioxide 25 (22-30) mmol/L BUN 13 (7-17) mg/dL Creatinine 1.0 (0.7-1.2) mg/dL Glucose 75 (65-100) mg/dL Calcium 8.8 (8.4-10.2) mg/dL
[2019-04-23 14:32] VITALS: BP 115/70
--- NOTE | 2019-04-23 14:38 | Discharge Summary ---
Providers - Providers Date of Admission: 04/18/19 18:44 Date of discharge: 04/23/19 Attending physician: KAYLEE SCOTT 04/18/19 18:28 Consult to Physician [CONS] Urgent Comment: Dr. Calvillo is aware/ashley Consulting Provider: BRANDON CALVILLO Physician Instructions: Reason For Exam: elbow pain, cholelithiasis, possible early SBO 04/18/19 20:16 Consult to Case Management [CONS] Routine Services Needed at Discharge: Home Health Services Notified:: JESE 04/19/19 08:23 Physical Therapy Evaluation and Treat [CONS] Routine Comment: Reason For Exam: Weakness 04/20/19 12:18 Physical Therapy Evaluation and Treat [CONS] Routine Comment: Reason For Exam: OOB and ambulate as marisol 04/21/19 11:10 Consult to Physician [CONS] Routine Comment: called office/ ashley Consulting Provider: BRINDA JARVIS Physician Instructions: Reason For Exam: coverage [facility] Hospital[facility] Condition: Stable Hospital course: 83-year-old -Turk[place] female with history of CKD, hypertension, A. fib status post ablation who presents to [facility] ED with complaints of right upper quadrant abdominal pain. Initial workup showed partial SBO and acute biliary colic, GS consulted, managed medically, tolerated soft diet before discharge. She will f/u outpt with her GI. Radiological data: Chest/abdomen x-ray Abdomen ultrasound Abdomen/pelvic CT HIDA scan Discharge diagnosis and management: /Partial SBO, resolved conservative mgt per GS, s/p NG suction follow BMP, abdominal xry showed mild improvement Abd series - non specific small bowel gas pattern. neg AFL started on clear liquid diet and advanced to soft diet /Acute Biliary colic HIDA scan showed no cystic duct obstruction, possible Ejection fraction significantly decreased consistent with gallbladder dysfunction, Stricture or partial obstruction of the distal common bile duct not entirely excluded. 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 - continue to avoid BB, cardiology following, outpt follow up /dvt ppx- [facility] Hospitalist Physical exam: GENERAL: well-developed obese elderly AAF lying on bed appeared to be in no discomfort. HEENT: Normocephalic. Atraumatic. No conjunctival congestion or icterus. Patient has moist mucous membranes. NECK: Supple. Trachea midline. CHEST/LUNGS: Clear to auscultated bilaterally, breathing nonlabored. No wheezes crackles or rhonchi. HEART/CARDIOVASCULAR: Regular in rate and rhythm. S1 and S2 positive. ABDOMEN: Abdomen is soft, nontender, obese. Patient has hypoactive bowel sounds. SKIN: There is no rash. Warm and dry. NEURO: No focal motor deficit. Follows command. MUSCULOSKELETAL: No joint effusion EXTRIMITY: No edema, no cyanosis or clubbing. PSYCH: Cooperative. Disposition: [id number] HOME UNDER HOME [facility] Time spent for discharge: 34 minutes Core Measure Documentation - Palliative Care Palliative Care/ Comfort Measures: Not Applicable - Core Measures Any of the following diagnoses?: history only Exam - Constitutional Vitals: Temp Pulse Resp BP Pulse Ox 97.9 F 79 20 115/70 92 04/23/19 13:18 04/23/19 13:18 04/23/19 13:18 04/23/19 13:18 04/23/19 13:18 Plan Activity: advance as tolerated, fall precautions Weight Bearing Status: Non-Weight Bearing Diet: low fat, low salt Follow up with: AJ VYAS MD [Primary Care Provider] - 3-5 Days BRINDA JARVIS DO [Staff Physician] - 7 Days
[2019-04-23] MEDS ORDERED: ASPIRIN 81 MG PO SCH (22:00)
[2019-04-23] MEDS ORDERED: BABY ASPIRIN PO SCH (22:00)
[2019-04-23] MEDS ORDERED: MYRBETRIQ 25 MG PO SCH (22:00)
[2019-04-23] MEDS ORDERED: URSO PO SCH (22:00)
[2019-04-24] MEDS ORDERED: NORVASC PO SCH (10:00)
[2019-04-24] MEDS ORDERED: NON-FORMULARY (Omeprazole [Omeprazole] 40 MG) PO SCH (10:00)
== END 2019-04-23 15:54 | disposition home health service (06) | DRG 388 ==
LOC: ED 12:43 → 2B-ACE 18:44
PROVIDERS: ADMIT Internal Medicine; ATTEND Internal Medicine
PROC: 0D9670Z Drainage of Stomach with Drainage Device, Via Natural or Artificial Opening (ICD-10-PCS; principal; 2019-04-19)
DX: K56.600 Partial intestinal obstruction, unspecified as to cause (principal); N17.0 Acute kidney failure with tubular necrosis; I13.0 Hypertensive heart and chronic kidney disease with heart failure and stage 1 through stage 4 chronic kidney disease, or unspecified chronic kidney disease; I95.9 Hypotension, unspecified; K80.20 Calculus of gallbladder without cholecystitis without obstruction; N18.3 Chronic kidney disease, stage 3 (moderate); I44.0 Atrioventricular block, first degree; I50.9 Heart failure, unspecified; H40.9 Unspecified glaucoma; Z60.2 Problems related to living alone; I48.91 Unspecified atrial fibrillation; Z87.442 Personal history of urinary calculi; Z88.0 Allergy status to penicillin; Z88.8 Allergy status to other drugs, medicaments and biological substances; Z88.6 Allergy status to analgesic agent; Z79.899 Other long term (current) drug therapy; Z90.710 Acquired absence of both cervix and uterus; Z87.891 Personal history of nicotine dependence
CPT/HCPCS: 36415; 70360; 70490; 71045; 71046; 74018; 74022; 74176; 74250; 76705; 78227; 80048; 80053; 81001; 83690; 85025; 85027; 87116; 93005; 93010; 99285; G0378; A9537; J1170; J1644; J1885; J2060; J2270; J2405; J2704; J7030; Q0162